=== PATIENT | male | born 1945 | race Caucasian/White ===

== ENCOUNTER 2016-09-18 22:28 | Inpatient (IN) | payer MEDICARE ==
[~2016-09-18] VITALS: Ht 167.6 cm; Wt 109.1 kg
[~2016-09-18 22:28] MED LIST: ACCUPRIL40 MG PO; CHILDREN'S ASPI81 MG PO; CORDARONE200 MG PO; DEMEROL 2525 MG/1 ML IV; DULCOLAX10 MG/SUPP RC; GLUCOPHAGE1000 MG PO; HUMULIN N100 U/ML SQ; HUMULIN R100 U/ML SC; HYDROCHLOROTHIA25 MG PO; HYDROCODONE-APA1 TAB PO; IMDUR60 MG PO; IPRAT-ALBUT 0.5-3 ML UPD; LAC-HYDRIN 5226 ML TOPICAL; LEVAQUIN500 MG PO; METFORMIN PO; METOPROLOL TAR100 MG PO; MIRALAX17 GM PO; NORCO 10/325 TA1 TA1 PO; OXYCONTIN30 MG PO; PRADAXA150 MG PO; PRAVACHOL80 MG PO; PRILOSEC20 MG PO; PROTONIX 40 MG40 MG IV; PROTONIX40 MG PO; SENOKOT-S TABLE1 TAB PO; TOPROL XL25 MG PO; ULTRAM50 MG PO; ZOFRAN4 MG PO; ZOLOFT50 MG PO
[2016-09-18 23:41] LABS: COLOR YELLOW (YELLOW)
[2016-09-18 23:42] LABS: APPEARANCE HAZY (CLEAR); BACTERIA FEW /hpf (NONE SEEN); BILIRUBIN NEGATIVE (NEGATIVE); EPITHELIAL CELLS 0-5 /hpf (0-5); GLUCOSE NEGATIVE (NEGATIVE); KETONE NEGATIVE (NEGATIVE); LEUKOCYTE ESTERASE 1+ (NEGATIVE); NITRITE NEGATIVE (NEGATIVE); PROTEIN NEGATIVE (NEGATIVE); RED CELLS - URINE NONE SEEN /hpf (0-5); UROBILINOGEN NORMAL (NORMAL); YEAST <1+ /hpf (NONE SEEN)
[2016-09-19 00:20] LABS: BASOPHILS 1.1 % (0.0-2.0); EOSINOPHILS 5.6 % (0-7); HEMATOCRIT 35.5 % (42.0-54.0); HEMOGLOBIN 11.2 g/dL (13.5-17.5); IMMATURE GRANULOCYTES 0.4 % (0-5); LYMPHOCYTES 21.8 % (15-50); MCH 27.4 pg (26.0-34.0); MCHC 31.5 g/dL (31.0-37.0); MCV 86.8 fL (80.0-100.0); MEAN PLATELET VOLUME 11.1 fL (7.4-10.4); MONOCYTES 9.6 % (2-11); NEUTROPHILS 61.5 % (40-80); PLATELET COUNT 150 10x3/uL (130-400); RBC 4.09 10x6/uL (4.20-6.10); RDW 13.3 % (11.5-14.5); WBC 5.7 10x3/uL (4.8-10.8)
[2016-09-19 00:35] LABS: ALBUMIN 2.8 g/dL (3.4-5.0); ANION GAP 9.6 mmol/L (8-16); BILIRUBIN - TOTAL 0.2 mg/dL (0.2-1.3); CALCIUM 9.1 mg/dL (8.5-10.1); CARBON DIOXIDE 31.3 mmol/L (21.0-32.0); CREATININE - SERUM 1.4 mg/dL (0.6-1.3); POTASSIUM - SERUM 4.9 mmol/L (3.5-5.1); PROTEIN - SERUM 7.5 g/dL (6.4-8.2)
[2016-09-19] MEDS ORDERED: KLOR-CON 1010 MEQ PO (02:49)
[2016-09-19] MEDS ORDERED: VITAMIN D250000 UNIT PO (02:50)
[2016-09-19] MEDS ORDERED: FLOMAX0.4 MG PO (02:51)
[2016-09-19] MEDS ORDERED: ISOSORBIDE MONO60 M1 PO (02:51)
[2016-09-19] MEDS ORDERED: CARTIA XT300 MG PO (02:51)
[2016-09-19] MEDS ORDERED: NEURONTIN 400400 MG PO (02:52)
[2016-09-19] MEDS ORDERED: SYNTHROID25 MCG PO (02:52)
[2016-09-19 02:53] VITALS: BP 121/63; BMI 36.0
[2016-09-19] MEDS ORDERED: MYSOLINE 50 MG50 MG PO (02:53)
[2016-09-19] MEDS ORDERED: PRAVACHOL80 MG PO (02:53)
[2016-09-19] MEDS ORDERED: LANOXIN125 MCG PO (02:54)
[2016-09-19] MEDS ORDERED: FUROSEMIDE40 MG PO (02:56)
[2016-09-19] MEDS ORDERED: TOPROL XL50 MG PO (02:56)
[2016-09-19] MEDS ORDERED: CYMBALTA20 MG PO (02:57)
[2016-09-19] MEDS ORDERED: REMERON15 MG PO (02:58)
[2016-09-19] MEDS ORDERED: OMEPRAZOLE20 M1 PO (02:59)
[2016-09-19] MEDS ORDERED: ACIDOPHILUS LAC1 CAP PO (03:00)
[2016-09-19] MEDS ORDERED: SENNA PLUS TA1 UDTAB PO (03:01)
[2016-09-19] MEDS ORDERED: CRANBERRY 400 M1 TA1 PO (03:01)
[2016-09-19] MEDS ORDERED: ALOPHEN PILLS5 MG PO (03:03)
[2016-09-19] MEDS ORDERED: PHENERGAN25 M1 PO (03:04)
[2016-09-19] MEDS ORDERED: MULTIPLE VITAMI1 TA1 PO (03:04)
[2016-09-19] MEDS ORDERED: HYDROCODONE-APA1 TAB PO ×2 (03:05→03:09)
[2016-09-19] MEDS ORDERED: ACETAMINOPHEN500 M1 PO (03:05)
[2016-09-19] MEDS ORDERED: LIORESAL 10 MG10 MG PO (03:06)
[2016-09-19] MEDS ORDERED: GLUCOPHAGE500 MG PO (03:07)
[2016-09-19] MEDS ORDERED: DURAGESIC1 PATCH .1 TRANSDERM (03:07)
[2016-09-19] MEDS ORDERED: MOBIC7.5 MG PO (03:08)
[2016-09-19] MEDS ORDERED: NOVOLOG100 U/M1 SC (03:13)
[2016-09-19] MEDS ORDERED: IPRAT-ALBUT 0.5-3 ML UPD (03:16)
--- NOTE | 2016-09-19 03:46 | NUR ---
RECIEVED PATIENT AT 0230 FROM ER BY DANIELLE, ALERT AND ORIENTED X 4, VSS, IV LEFT HAND WITH NS AT 100 AND LEVIQUINE, CALL LIGHT AND WATER IN REACH, BED RAILS UP X 2, BED LOW AND LOCKED, ASSESSMENT AND HISTORY DONE, MEDICATIONS ENTERED INTO COMPUTER, CHIEF COMPLAINT UTI, WILL CONTINUE TO MONITOR.
[2016-09-19 04:00] VITALS: BP 121/63
[2016-09-19 04:07] LABS: UDS - AMPHET NEGATIVE QUAL (NEGATIVE); UDS - BARB POSITIVE QUAL (NEGATIVE); UDS - BENZO NEGATIVE QUAL (NEGATIVE); UDS - COCAINE NEGATIVE QUAL (NEGATIVE); UDS - METH NEGATIVE QUAL (NEGATIVE); UDS - OPIATE POSITIVE QUAL (NEGATIVE); UDS - PCP NEGATIVE QUAL (NEGATIVE); UDS - THC NEGATIVE QUAL (NEGATIVE)
[2016-09-19 09:09] VITALS: BP 134/68
--- NOTE | 2016-09-19 09:28 | NUR ---
SCD'S ON BILATERAL LE
[2016-09-19 10:44] VITALS: Ht 167.6 cm; Wt 109.1 kg
--- NOTE | 2016-09-19 11:37 | NUR ---
PT LAYING IN BED AND APPERS TO BE SLEEPING NO DISTRESS OBSERVED PT RESPONDS TO VERBAL STIMULI AND ANSWER QUESTIONS APPROPREATLY BED LOW AND LOCKED SRX2 WILL MONITOR
[2016-09-19 12:38] VITALS: BP 148/80
--- NOTE | 2016-09-19 13:00 | NUR ---
PT LAYING IN BED NO DISTRESS OBSERVED CALL LIGHT IN REACH SRX2 BED LOW AND LOCKED RESPERATIONS EVEN AND UNLABORED WILL MONITOR
--- NOTE | 2016-09-19 15:36 | NUR ---
PT C/O PAIN AT THIS TIME DR MOTTA TO RECIVE ORDER AND NO RETURN CALL OF YET
[2016-09-19 15:45] VITALS: BP 131/74
--- NOTE | 2016-09-19 16:01 | NUR ---
Patient Name: GOMEZ SANTO Admission Status: ER Accout number: [id number] Admission Date: 09-19-2016 : 1945 Admission Diagnosis:URINARY TRACT INFECTION, SITE NOT SPECIFIED Attending: RODY Current LOS: 1 Anticipated DC Date: Planned Disposition: Nursing Facility [facility] Primary Insurance: MEDICARE A & B PLANNED EXTERNAL PROVIDER: [facility], [place] MEDICA[place] BED Discharge Planning Comments: * Is the patient Alert and Oriented? Yes 0 * How many steps to enter\exit or inside your home? NONE 0 * PCP DR. MARSH 0 * Pharmacy [facility] 0 * Preadmission Environment [facility] 0 * Facility Name [facility] 0 * ADLs Partial Dependent 0 * Partial ADLs (Assistance needed) Bathing Medication Management Toileting Transfers 0 * Equipment Other 0 * Other Equipment ALL MEDICAL EQUIPMENT PROVIDED BY RETIREMENT [facility] 0 * List name and contact numbers for known caregivers / representatives who currently or will assist patient after discharge: JOSE GAITAN, DAUGHTER, 0 * Community resources currently utilized Other 0 * Please name any agencies selected above. NONE 0 * Additional services required to return to the preadmission environment? No 0 * Can the patient safely return to the preadmission environment? Yes 0 * Has this patient been hospitalized within the prior 30 days at any hospital? No 0 CM MET WITH PT IN ROOM TO DISCUSS DISCHARGE PLANNING AND NEEDS. PT REPORTS HE LIVES AT [facility] [place]. PT REPORTS THEY ARE TAKING GOOD CARE OF HIM AND HE FEELS SAFE THERE. PT HAS LIVED AT THE [facility] FOR ABOUT ONE YEAR AFTER HE HAD A STROKE, COMPLETED REHAB AND COULD NOT GO HOME. PT REPORTS PLAN TO RETURN TO [facility] AT DISCHARGE. FOR DISCHARGE, NURSE REPORT TO BE CALLED TO [facility] AT [phone], FAX DISCHARGE INFORMATION TO [place] AT [phone]. PT MAY REQUIRE AMBULANCE TRANSPORT HE REPORTS INABILITY TO SIT ERECT FOR MORE THAN A FEW MINUTES AT A TIME. Snowboarder: Minesh Escobar
--- NOTE | 2016-09-19 19:34 | NUR ---
FELICITAS FIELDS CALLED TO SPEAK WITH PT AND PT DAUGHTER BETHANIE ARRIVED AT PT ROOM AT THIS TIME
[2016-09-19 20:30] VITALS: BP 107/85
--- NOTE | 2016-09-19 23:48 | NUR ---
PT LAYING IN BED EYES CLOSED PT APPERS TO BE SLEEPING NO DISTRESS OBSERVED CALL LIGHT IN REACH SRX2 BED LOW AND LOCKED RESPERATIONS EVEN AND UNLABORED WILL MONITOR
[2016-09-20] VITALS: BP 119/52
--- NOTE | 2016-09-20 01:46 | NUR ---
PT LYING IN BED, EYES CLOSED, RESPIRATIONS EVEN AND UNLABORED. PT EASILY ROUSABLE TO VERBAL STIMULI. DENIES ANY NEEDS. CONTINUE TO MONITOR CLOSELY. BED LOW, CALL LIGHT IN REACH, SIDE RAILS X 2, HOB 10 DEGREES.
[2016-09-20 06:29] VITALS: BP 131/66
[2016-09-20 07:05] LABS: BASOPHILS 0.6 % (0.0-2.0); EOSINOPHILS 5.2 % (0-7); HEMOGLOBIN 10.4 g/dL (13.5-17.5); IMMATURE GRANULOCYTES 0.4 % (0-5); LYMPHOCYTES 19.7 % (15-50); MCH 27.4 pg (26.0-34.0); MCHC 31.5 g/dL (31.0-37.0); MCV 86.8 fL (80.0-100.0); MEAN PLATELET VOLUME 10.7 fL (7.4-10.4); MONOCYTES 11.5 % (2-11); NEUTROPHILS 62.6 % (40-80); PLATELET COUNT 160 10x3/uL (130-400); RDW 13.3 % (11.5-14.5); WBC 5.4 10x3/uL (4.8-10.8)
[2016-09-20 07:19] LABS: CALC OSMOLALITY 283 mosm/kg (275-300); CALCIUM 9.5 mg/dL (8.5-10.1); CARBON DIOXIDE 31.2 mmol/L (21.0-32.0); CHLORIDE - SERUM 104 mmol/L (98-107); CREATININE - SERUM 0.9 mg/dL (0.6-1.3); POTASSIUM - SERUM 4.3 mmol/L (3.5-5.1); SODIUM 140 mmol/L (136-145); UREA NITROGEN 11 mg/dL (7-18); eGFR NON AFRICAN AMERICAN 88 mL/min (90-120)
[2016-09-20 07:23] LABS: GLUCOSE 208 mg/dL (74-106)
--- NOTE | 2016-09-20 07:30 | NUR ---
LAYING IN BED WATCHING TV. DENIES NEEDS. CALL LIGHT IN REACH. INCONT OF URINE
[2016-09-20 08:32] VITALS: BP 144/76
--- NOTE | 2016-09-20 12:01 | NUR ---
SITTING UP IN CHAIR IN ROOM EATING LUNCH. INSISTED ON GETTING UP EARLIER. REFUSED TO USE URINAL OR EVEN TRY. STATED HE PREFERRED TO BE INCONT IN BRIEF LIKE HE DOES IT AT [facility]. WHEN NURSE ENCOURAGED PT TO TRY TO USE URINAL HE SAID HE COULD NOT PEE STRAIGHT AND WOULD MISS THE OPENING OF URINAL. WHEN NURSE TOOK URINAL AWAY AT PT INSISTANCE HE IMMEDIATELY PEED IN FLOOR.
[2016-09-20 12:43] VITALS: BP 127/102
--- NOTE | 2016-09-20 14:05 | NUR ---
IN BED. HAD BATH DUE TO INCONT OF URINE AND BOWEL. MAX ASST WITH TRANSFERS. HAS BILAT FOOT DROP.
[2016-09-20 16:18] VITALS: BP 97/56
--- NOTE | 2016-09-20 17:16 | NUR ---
DTR IS VISITING PT AND BROUGHT HIM NON DIABETIC FOODS. HE DENIES NEEDS.
[2016-09-20 20:15] VITALS: BP 84/50
--- NOTE | 2016-09-20 21:29 | NUR ---
PT AWAKE, ALERT, ORIENTED, DENIES ANY ACUTE NEEDS AT THIS TIME. CONTINUE TO MONITOR CLOSELY. BED LOW, CALL LIGHT IN REACH, SIDE RAILS X 2, HOB 10 DEGREES.
--- NOTE | 2016-09-20 23:49 | NUR ---
PT LYING IN BED, EYES CLOSED, RESPIRATIONS EVEN AND UNLABORED. PT IS EASILY ROUSABLE TO VERBAL STIMULI. DENIES ANY NEEDS. CONTINUE TO MONITOR CLOSELY. BED LOW, CALL LIGHT IN REACH, HOB 20 DEGREES, SIDE RAILS X 2.
[2016-09-21 00:34] VITALS: BP 130/60
[2016-09-21 04:26] VITALS: BP 108/53
--- NOTE | 2016-09-21 07:33 | NUR ---
AM ROUNDING DONE. PATIENT IS APPEARING TO BE SLEEPING, RESP ARE EVEN AND NON LABORED. DNR CODE STATUS, ON 2L PER NC. LEFT WRIST WITH NS INFUSING AT 100/HR. WILL CONTINUE TO MONITOR.
[2016-09-21 08:33] VITALS: BP 112/68
[2016-09-21 12:26] VITALS: BP 132/68
[2016-09-21 15:46] VITALS: BP 142/77
--- NOTE | 2016-09-21 17:37 | NUR ---
COVERED WITH 2 UNITS OF HUMALOG INSULINE TO LEFT UPPER ARM. PATIENT ATE A FEW BITES OF HAMBURGER, ENCOUARGED TO EAT MORE. WILL MONITOR.
[2016-09-21 20:00] VITALS: BP 106/46
[2016-09-22 03:49] VITALS: BP 112/52
--- NOTE | 2016-09-22 03:53 | NUR ---
PATIENT SUPINE IN BED WATCHING T.V. I.V INFUSING, 02 AT 2L, BED LOW, CALL LIGHT IN REACH. CONTINUE TO MONITOR, CONTINUE PLAN OF CARE
--- NOTE | 2016-09-22 07:40 | NUR ---
PT ASSESSMENT COMPLETED PT LAYING IN BED NO DISTRESS OBSERVED RESPERATIONS EVEN AND UNLBAORED CALL LIGHT IN REACH SRX2 BED LOW AND LOCKED WILL MONITOR
[2016-09-22 08:25] VITALS: BP 132/54
--- NOTE | 2016-09-22 10:09 | NUR ---
PT CLEANED UP BY JEROME BAEZ AT THIS TIME PT TOLERATED WELL
[2016-09-22 11:37] VITALS: BP 130/63
--- NOTE | 2016-09-22 13:20 | NUR ---
WOUND CARE: NOTED THAT BILATERAL LOWER EXTREMITIES ARE RED, EDEMATOUS AND SCALY. PT STATES THEY HAVE LOOKED LIKE THIS FOR "A LONG TIME". HE STATES HIS "BOTTOM IS SORE". UPON ASSESSMENT NOTED A DEEP TISSUE INJURY TO LEFT BUTTOCK (COCCYX) 0.5CM X 2CM X PURPLE/NONBLANCHING INNER LEFT BUTTOCK (COCCYX) STAGE 2 PRESSURE INJURY (RUPTURED BLISTER) DEEP PURPLE IN COLOR. COVERED AREAS WITH MEPILEX SACRAL DRESSING AND INSTRUCTED PT TO TURN/REPOSITION HIMSELF FREQUENTLY. PLACED ON A TURN Q2H SCHEDULE.
[2016-09-22 15:59] VITALS: BP 95/45
--- NOTE | 2016-09-22 17:21 | NUR ---
BS IS 267. PT REFUSED TO EAT SUPPER SO BS NOT COVERED.
--- NOTE | 2016-09-22 19:40 | NUR ---
LAYING IN BED, WITH HOB UP EATING DINNER THAT FAMILY BROUGHT. USES URINAL W/O DIFF. NO IV NOTED. SACRAL DRSG CDI. BED ALARM ON AND WORKING. SR UP X2, CONTINUE TO MONITOR.
[2016-09-22 20:00] VITALS: BP 103/55
[2016-09-23] VITALS: BP 102/50
[2016-09-23 04:00] VITALS: BP 134/56
--- NOTE | 2016-09-23 07:34 | NUR ---
AM ROUNDING DONE WITH PATIENT SEEN TO BE LAYING FLAT. DENIES NEEDS AT PRESENT TIME. ON 2.5 L NC. BED ALARM IS SET. WILL COTNINUE TO MONITOR.
[2016-09-23 08:08] VITALS: BP 128/65
--- NOTE | 2016-09-23 10:24 | NUR ---
0840-SMALL MEPILEX REMOVED FROM BUTTOCK. ON LEFT BUTT CHEECK, PRESSURE ULCER OR SHEARING SEEN (STAGE 1) MEASURING 2 CM X 1 CM AND ANOTHER BRUSIED INJURY AREA (DEEP TISSUE ?) SEEN WITH MEASUREMENT OF 3 CM X 1 CM. NO DRAINAGE FROM EITHER. NEW MEPILEX PLACED AND DATED.
[2016-09-23] MEDS ORDERED: DIFLUCAN100 MG PO (10:25)
--- NOTE | 2016-09-23 11:37 | NUR ---
Patient Name: GOMEZ SANTO Encounter No: [id number] : 1945 Primary Insurance: MEDICARE A & B Anticipated DC Date: 09-23-2016 Planned Disposition: Nursing Facility [facility] External Planned Provider: [facility], MEDICARE REHAB BED DCP follow-up note: CM RECEIVED DISCHARGE ORDER, MET WITH PT IN ROOM WHO REPORTS AGREEMENT WITH DISCHARGE BACK TO [facility]. IMPORTANT MESSAGE FROM MEDICARE PROVIDED AND EXPLAINED. PT REPORTS ABILITY TO SIT IN WHEELCHAIR FOR VAN TRANSPORT. CM FAXED DISCHARGE INFORMATION TO [facility] AT [phone]. NURSE REPORT TO BE CALLED TO [facility] AT [phone], [facility] TO CALL FLOOR WITH VAN SPRAY PAINTING MACHINE OPERATOR TIME. Human Capital Consultant: Minesh Escobar
[2016-09-23 11:41] VITALS: BP 116/78
--- NOTE | 2016-09-23 13:24 | NUR ---
CALLED REPORT TO DYLAN MORILLO AT [facility]. WILL CALL [facility] TRANSPORT [phone].
--- NOTE | 2016-09-23 14:21 | NUR ---
CALLED DALLIN IN ER TO SEE IF PATIENT HAS HIS "CLARKE SWEATPANTS POSSIBLY WITH A BLEACH STAIN ON THEM AND EITHER SIZE 8.5 BLACK OR BROWN PAIR OF DIABETIC SHOES". AWAITING CALL BACK.
--- NOTE | 2016-09-23 14:32 | NUR ---
ER TO CALL BACK AND TELL ME THAT THEY DO NOT HAVE THE CLOTHES.
--- NOTE | 2016-09-23 14:41 | NUR ---
1435-VERBAL AND WRITTEN DISCHARGE INSTRUCTIONS GIVEN TO PATIENT. AMBULANCE HERE, WITH MAX ASSSIT, TRANSFERRED TO [facility] AND DISCHARGED.
== END 2016-09-23 14:44 | DRG 728 ==
LOC: D.ER 22:28 → D.M2 09-19 01:55
PROVIDERS: Emergency Medicine; Nurse Practitioner Family; ADMIT Family Medicine
DX: B37.49 Other urogenital candidiasis (principal); I69.954 Hemiplegia and hemiparesis following unspecified cerebrovascular disease affecting left non-dominant side; R41.0 Disorientation, unspecified; E86.0 Dehydration; D64.9 Anemia, unspecified; E11.9 Type 2 diabetes mellitus without complications; E78.5 Hyperlipidemia, unspecified; I48.91 Unspecified atrial fibrillation; I25.10 Atherosclerotic heart disease of native coronary artery without angina pectoris; I10 Essential (primary) hypertension; N40.0 Benign prostatic hyperplasia without lower urinary tract symptoms; J44.9 Chronic obstructive pulmonary disease, unspecified; E03.9 Hypothyroidism, unspecified; G47.33 Obstructive sleep apnea (adult) (pediatric); G89.4 Chronic pain syndrome; G47.00 Insomnia, unspecified; R25.1 Tremor, unspecified; K59.09 Other constipation; E66.01 Morbid (severe) obesity due to excess calories; Z68.36 Body mass index [BMI] 36.0-36.9, adult; Z95.5 Presence of coronary angioplasty implant and graft

== ENCOUNTER 2017-01-05 17:48 | Inpatient (IN) | payer MEDICARE ==
[~2017-01-05] VITALS: Ht 167.6 cm; Wt 81.6 kg
[~2017-01-05 17:48] MED LIST changes: +ACETAMINOPHEN500 M1 PO; +ACIDOPHILUS LAC1 CAP PO; +ALOPHEN PILLS5 MG PO; +CARTIA XT300 MG PO; +CRANBERRY 400 M1 TA1 PO; +CYMBALTA20 MG PO; +DIFLUCAN100 MG PO; +DURAGESIC1 PATCH .1 TRANSDERM; +FLOMAX0.4 MG PO; +FUROSEMIDE40 MG PO; +GLUCOPHAGE500 MG PO; +ISOSORBIDE MONO60 M1 PO; +KLOR-CON 1010 MEQ PO; +LANOXIN125 MCG PO; +LIORESAL 10 MG10 MG PO; +MOBIC7.5 MG PO; +MULTIPLE VITAMI1 TA1 PO; +MYSOLINE 50 MG50 MG PO; +NEURONTIN 400400 MG PO; +NOVOLOG100 U/M1 SC; +OMEPRAZOLE20 M1 PO; +PHENERGAN25 M1 PO; +REMERON15 MG PO; +SENNA PLUS TA1 UDTAB PO; +SYNTHROID25 MCG PO; +TOPROL XL50 MG PO; +VITAMIN D250000 UNIT PO
[2017-01-05 18:26] LABS: APPEARANCE HAZY (CLEAR); BILIRUBIN NEGATIVE (NEGATIVE); COLOR YELLOW (YELLOW); GLUCOSE 100 mg/dL (NEGATIVE); KETONE NEGATIVE (NEGATIVE); LEUKOCYTE ESTERASE 2+ (NEGATIVE); NITRITE NEGATIVE (NEGATIVE); PROTEIN 1+ mg/dL (NEGATIVE); UROBILINOGEN NORMAL (NORMAL)
[2017-01-05 18:27] LABS: BACTERIA MODERATE /hpf (NONE SEEN); RED CELLS - URINE 0-5 /hpf (0-5); YEAST >1+ /hpf (NONE SEEN)
[2017-01-05 18:38] LABS: BASOPHILS 0.3 % (0-2); EOSINOPHILS 1.6 % (0-7); HEMATOCRIT 43.1 % (42.0-54.0); HEMOGLOBIN 14.1 g/dL (13.5-17.5); IMMATURE GRANULOCYTES 0.4 % (0-5); LYMPHOCYTES 11.4 % (15-50); MCH 27.9 pg (26.0-34.0); MCHC 32.7 g/dL (31.0-37.0); MCV 85.2 fL (80.0-100.0); MEAN PLATELET VOLUME 10.2 fL (7.4-10.4); NEUTROPHILS 76.3 % (40-80); RBC 5.06 10x6/uL (4.20-6.10); RDW 13.1 % (11.5-14.5); WBC 11.6 10x3/uL (4.8-10.8)
[2017-01-05 18:39] LABS: UDS - AMPHET NEGATIVE QUAL (NEGATIVE); UDS - BARB POSITIVE QUAL (NEGATIVE); UDS - BENZO NEGATIVE QUAL (NEGATIVE); UDS - COCAINE NEGATIVE QUAL (NEGATIVE); UDS - METH NEGATIVE QUAL (NEGATIVE); UDS - OPIATE POSITIVE QUAL (NEGATIVE); UDS - PCP NEGATIVE QUAL (NEGATIVE); UDS - THC NEGATIVE QUAL (NEGATIVE)
[2017-01-05 19:03] LABS: INR 1.21 (0.85-1.17); PROTIME 15.2 SECONDS (11.6-15.0)
[2017-01-05 19:04] LABS: APTT 45.6 SECONDS (22.8-39.4)
[2017-01-05 19:05] LABS: ALBUMIN 3.8 g/dL (3.4-5.0); ANION GAP 9.9 mmol/L (8-16); BILIRUBIN - TOTAL 0.58 mg/dL (0.2-1.3); CARBON DIOXIDE 36.9 mmol/L (21.0-32.0); PROTEIN - SERUM 9.5 g/dL (6.4-8.2); TROPONIN-I 0.029 ng/mL (0.000-0.060)
[2017-01-05 19:10] LABS: PLATELET COUNT 226 10x3/uL (130-400)
[2017-01-05 19:18] LABS: CALCIUM 10.2 mg/dL (8.5-10.1); CREATININE - SERUM 1.4 mg/dL (0.6-1.3)
[2017-01-05 19:29] LABS: POTASSIUM - SERUM 2.8 mmol/L (3.5-5.1)
--- NOTE | 2017-01-05 21:08 | NUR ---
RECIEVED PT TO FLOOR VIA STRETCHER FROM ED. PT IS ORIENTED ONLY TO SELF. IV IS PATENT AND ANTIBIOTIC RUNNING FROM ED. MINA IS DRAINING URINE BY GRAVITY. PT DENIES ANY PAIN. PT IS ORIENTED TO ROOM AND USE OF CALL LIGHT. NO NEEDS ARE VERBALIZED AT THIS TIME. WILL CONTINUE TO MONITOR. STEPAN MAT PLACED ON FOR SAFETY. SIDE RAILS ARE UP X 2. BED IS IN LOWEST POSITION. CALL LIGHT PLACED IN HAND.
--- NOTE | 2017-01-05 22:58 | NUR ---
ADMIT ASSESSMENT COMPLETED AT THIS TIME. FLUIDS HOOKED UP PER ORDER. PT RECIEVED 10 UNITS INSULIN AT THIS TIME FOR ITFT=678. NO NEEDS ARE VOICED. WILL MONITOR. SIDE RAILS X 2. BED LOW. STEPAN ON. CALL LIGHT IN REACH.
[2017-01-06] VITALS (7 sets, daily range): BP systolic 120–170; BP diastolic 64–95; Ht 167.6 cm; Wt 81.6 kg
[2017-01-06] MEDS ORDERED: ASPIRIN EC81 M1 PO (03:44)
[2017-01-06] MEDS ORDERED: ELIQUIS2.5 MG PO (03:46)
[2017-01-06 06:45] LABS: BASOPHILS 0.4 % (0-2); EOSINOPHILS 0.7 % (0-7); HEMATOCRIT 41.3 % (42.0-54.0); HEMOGLOBIN 13.5 g/dL (13.5-17.5); IMMATURE GRANULOCYTES 0.4 % (0-5); LYMPHOCYTES 18.6 % (15-50); MCH 27.6 pg (26.0-34.0); MCHC 32.7 g/dL (31.0-37.0); MCV 84.3 fL (80.0-100.0); MEAN PLATELET VOLUME 9.9 fL (7.4-10.4); MONOCYTES 10.3 % (2-11); NEUTROPHILS 69.6 % (40-80); PLATELET COUNT 210 10x3/uL (130-400); RDW 13.2 % (11.5-14.5)
[2017-01-06 07:01] LABS: ANION GAP 11.6 mmol/L (8-16); CALCIUM 9.9 mg/dL (8.5-10.1); CARBON DIOXIDE 34.7 mmol/L (21.0-32.0); CREATININE - SERUM 1.4 mg/dL (0.6-1.3)
[2017-01-06 07:03] LABS: POTASSIUM - SERUM 3.3 mmol/L (3.5-5.1)
[2017-01-06 07:04] LABS: WBC 7.7 10x3/uL (4.8-10.8)
--- NOTE | 2017-01-06 13:46 | NUR ---
Patient Name: GOMEZ SANTO Admission Status: ER Accout number: [id number] Admission Date: 01-05-2017 : 1945 Admission Diagnosis: Attending: RODY Current LOS: 1 Anticipated DC Date: 01-08-2017 Planned Disposition: Nursing Facility [facility] Primary Insurance: MEDICARE A & B Discharge Planning Comments: CM CALLED PATIENTS DAUGHTER (JOSE) REGARDING D/C NEEDS AND PLANS. PATIENT IS A RESIDENT AT [facility] FOR ABOUT 2 YEARS NOW PER DAUGHTER. PATIENT IS [place] AT THE FACILITY. PATIENTS PCP IS DR. MARSH AND PHARMACY IS IN HOUSE. PATIENT WILL RETURN THERE AT DISCHARGE. CM WILL CONTINUE TO FOLLOW PATIENT WITH D/C NEEDS AND PLANS. PCP DR[facility] (PHARMACY IN HOUSE) JOSE GAITAN (DAUGHTER) [phone] Form Carpenter: Tawny Zhou Is the patient Alert and Oriented? No 0 * How many steps to enter\exit or inside your home? 0 0 * PCP DR. MARSH 0 * Pharmacy IN HOUSE AT [facility] 0 * Preadmission Environment Application Software Engineer Residential 0 * Facility Name [facility] 0 * ADLs Total Dependent 0 * Other Equipment [place] ALL EQUIPMENT NEEDED AT FACILITY 0 * List name and contact numbers for known caregivers / representatives who currently or will assist patient after discharge: JOSE GAITAN [phone] 0 * Community resources currently utilized None 0 * Additional services required to return to the preadmission environment? Yes 0 * Can the patient safely return to the preadmission environment? Yes 0 * Has this patient been hospitalized within the prior 30 days at any hospital? No 0 Grand Total: 0
--- NOTE | 2017-01-06 15:34 | NUR ---
CHANGED MINA CATHETER. PATIENT HAD CHRONIC MINA CATHETER ON ADMISSION. PUT IN A 16FR MINA, STERILE TECHNIQUE MAINTAINED. PATIENT TOLERATED WELL.
--- NOTE | 2017-01-06 19:20 | NUR ---
RECIEVED SHIFT REPORT. PT IS LYING IN BED ALERT TO SELF AT THIS TIME. IV IS PATENT AND FLUIDS ARE RUNNING PER ORDER. PT DENIES ANY PAIN AT THIS TIME. PT REQUIRES ASSISTANCE TURNING IN BED FOR COMFORT AND SKIN CARE. MINA IS DRAINING URINE BY GRAVITY. NO NEEDS ARE VERBALIZED AT THIS TIME. WILL CONTINUE TO MONITOR. SIDE RAILS ARE UP X 2. BED IS IN LOWEST POSITION. STEPAN MAT IS ON FOR SAFETY. CALL LIGHT IS WITHIN REACH.
--- NOTE | 2017-01-06 21:53 | NUR ---
SHIFT ASSESSMENT COMPLETED. NIGHT MEDS GIVEN WITH NO PROBLEMS. PT RECIEVED 8 UNITS INSULIN PER SLIDING SCALE FOR KJNP=785. NO NEEDS ARE VOICED. WILL MONITOR. SIDE RAILS X 2. BED LOW. STEPAN MAT ON. CALL LIGHT IN REACH.
--- NOTE | 2017-01-06 23:10 | NUR ---
NOTIFIED THAT PATIENT HAD ACCIDENTALLY PULLED OUT HIS IV. NO SIGNS OF INFILTRATION NOTED. RESITED THE PATIENT WITH A 20G IN THE L FA ON THE SECOND ATTEMPT.
[2017-01-07] VITALS: BP 147/81
[2017-01-07 05:21] LABS: BASOPHILS 0.3 % (0-2); EOSINOPHILS 0.5 % (0-7); HEMATOCRIT 35.8 % (42.0-54.0); HEMOGLOBIN 11.4 g/dL (13.5-17.5); IMMATURE GRANULOCYTES 0.3 % (0-5); LYMPHOCYTES 19.5 % (15-50); MCH 27.1 pg (26.0-34.0); MCHC 31.8 g/dL (31.0-37.0); MEAN PLATELET VOLUME 10.4 fL (7.4-10.4); MONOCYTES 11.2 % (2-11); NEUTROPHILS 68.2 % (40-80); PLATELET COUNT 209 10x3/uL (130-400); RBC 4.21 10x6/uL (4.20-6.10); RDW 13.4 % (11.5-14.5); WBC 7.9 10x3/uL (4.8-10.8)
[2017-01-07 06:22] LABS: HEMOGLOBIN A1C 9.3 % (4.8-6.0)
[2017-01-07 06:49] LABS: BILIRUBIN - TOTAL 0.4 mg/dL (0.2-1.3); CALCIUM 9.3 mg/dL (8.5-10.1); CARBON DIOXIDE 32.5 mmol/L (21.0-32.0); CHOL - HDL RATIO 4.3 ratio (2.3-4.9); CREATININE - SERUM 1.5 mg/dL (0.6-1.3); LDL-HDL RATIO 2.3 ratio (1.5-3.5); PROTEIN - SERUM 7.6 g/dL (6.4-8.2); THYROID STIMULATING HORMONE 1.53 uIU/mL (0.36-3.74)
[2017-01-07 06:55] LABS: ALBUMIN 2.8 g/dL (3.4-5.0); ANION GAP 10.7 mmol/L (8-16); POTASSIUM - SERUM 4.2 mmol/L (3.5-5.1)
[2017-01-07 08:51] VITALS: BP 144/85
[2017-01-07 13:12] VITALS: BP 119/58
[2017-01-07 14:50] VITALS: BP 124/66
--- NOTE | 2017-01-07 19:00 | NUR ---
BEDSIDE REPORT RECEIVED AND CARE OF PT ASSUMED. PT LYING IN SEMI MEDRANO'S POSITION WATCHING TV. IV IN LEFT FA PATENT WITH NS W/ 40 KCL INFUSING AT 125 ML / HR. MINA CATHETER DRAINING TO GRAVITY WITY YELLOW URINE IN COLLECTION BAG. WILL MONITOR FOR NEEDS.
[2017-01-07 20:00] VITALS: BP 144/62
--- NOTE | 2017-01-07 21:31 | NUR ---
HS MEDICATIONS GIVEN. FSBS 278 THIS CHECK REQUIRING COVERAGE WITH 6 UNITS OF INSULIN PER SLIDING SCALE. WILL CONTINUE TO MONITOR FOR NEEDS. BED ALARM IN USE.
[2017-01-08] VITALS: BP 108/63
--- NOTE | 2017-01-08 00:30 | NUR ---
PT BATHED AND ALL LINENS AND GOWN CHANGED. SIDE RAILS UP X2 FOR SAFETY.
[2017-01-08 04:00] VITALS: BP 110/70
--- NOTE | 2017-01-08 07:59 | NUR ---
AWAKE AND ALERT. ORIENTED TO SELF AND SITUATION. REORIENTED TO TIME PER STAFF. LUNGS ARE CLEAR BILATERALLY, NO COUGH NOTED. SKIN IS INTACT WITHOUT REDNESS. SOME EDEMA NOTED TO BILATERAL LOWER EXTREMETIES. MINA PATENT WITH CLEAR YELLOW URINE. IV TO LEFT FOREARAM IS PATENT WITHOUT REDNESS AT INSERTION SITE. DENIES NEEDS.
--- NOTE | 2017-01-08 10:00 | NUR ---
HAD LARGE SOFT BM. SKIN CARE PER STAFF. LINENS CHANGED.
[2017-01-08 10:13] VITALS: BP 152/78
[2017-01-08] MEDS ORDERED: DIFLUCAN100 MG PO (11:07)
[2017-01-08] MEDS ORDERED: CATAPRES0.2 MG PO (11:08)
[2017-01-08] MEDS ORDERED: NEURONTIN 400400 MG PO (11:09)
[2017-01-08] MEDS ORDERED: INVOKANA300 MG PO (11:10)
[2017-01-08] MEDS ORDERED: LANTUS INSULIN10 ML SC (11:12)
[2017-01-08] MEDS ORDERED: JANUVIA100 MG PO (11:12)
[2017-01-08 12:27] VITALS: BP 129/54
--- NOTE | 2017-01-08 13:57 | NUR ---
CM REASSESSMENT NOTE: PATIENT IS DISCHARGING BACK TO [facility] TODAY BY AMBULANCE TO A SENIOR ANDROID DEVELOPER BED
--- NOTE | 2017-01-08 14:30 | NUR ---
REPORT CALLED TO DIAMOND SANTO LPN AT [facility]. ALL QUESTIONS ANSWERED. IV TO LEFT FOREARM D/C WITH CATHETER INTACT.
--- NOTE | 2017-01-08 15:20 | NUR ---
DISCHARGED VIA AMBULANCE TO [facility]. DAUGHTER AWARE PER DR. MARSH OF RETURN TO PREVIOUS LIVING CIRCUMSTANCES.
== END 2017-01-08 13:20 | DRG 689 ==
LOC: D.ER 17:48 → D.MS 20:02
PROVIDERS: Emergency Medicine; ADMIT Family Medicine
DX: N39.0 Urinary tract infection, site not specified (principal); G93.41 Metabolic encephalopathy; E11.9 Type 2 diabetes mellitus without complications; I25.10 Atherosclerotic heart disease of native coronary artery without angina pectoris; R25.1 Tremor, unspecified; I69.319 Unspecified symptoms and signs involving cognitive functions following cerebral infarction; E03.9 Hypothyroidism, unspecified; J44.9 Chronic obstructive pulmonary disease, unspecified; M19.90 Unspecified osteoarthritis, unspecified site; I10 Essential (primary) hypertension; E78.5 Hyperlipidemia, unspecified; I48.91 Unspecified atrial fibrillation; Z79.02 Long term (current) use of antithrombotics/antiplatelets; N40.0 Benign prostatic hyperplasia without lower urinary tract symptoms; F32.9 Major depressive disorder, single episode, unspecified

== ENCOUNTER 2017-02-22 11:22 | Inpatient (IN) | payer MEDICARE ==
[~2017-02-22] VITALS: Ht 167.6 cm; Wt 112.9 kg
[~2017-02-22 11:22] MED LIST changes: +ASPIRIN EC81 M1 PO; +CATAPRES0.2 MG PO; +ELIQUIS2.5 MG PO; +INVOKANA300 MG PO; +JANUVIA100 MG PO; +LANTUS INSULIN10 ML SC
[2017-02-22 12:04] LABS: APPEARANCE CLEAR (CLEAR); BILIRUBIN NEGATIVE (NEGATIVE); COLOR YELLOW (YELLOW); GLUCOSE 1000 mg/dL (NEGATIVE); KETONE NEGATIVE (NEGATIVE); LEUKOCYTE ESTERASE 1+ (NEGATIVE); NITRITE NEGATIVE (NEGATIVE); PROTEIN TRACE mg/dL (NEGATIVE); SPECIFIC GRAVITY 1.005 (1.005-1.020); UROBILINOGEN NORMAL (NORMAL)
[2017-02-22 12:08] LABS: BACTERIA MODERATE /hpf (NONE SEEN); CALCIUM OXALATE CRYSTALS 0-5 /hpf (NONE SEEN); EPITHELIAL CELLS OCC /hpf (0-5); RED CELLS - URINE 0-5 /hpf (0-5); WHITE CELLS - URINE 0-5 /hpf (0-5); YEAST >1+ /hpf (NONE SEEN)
[2017-02-22 12:11] LABS: BASOPHILS 0.3 % (0-2); EOSINOPHILS 2.3 % (0-7); HEMATOCRIT 43.1 % (42.0-54.0); IMMATURE GRANULOCYTES 0.6 % (0-5); LYMPHOCYTES 16.6 % (15-50); MCH 27.7 pg (26.0-34.0); MCHC 32.5 g/dL (31.0-37.0); MCV 85.3 fL (80.0-100.0); MONOCYTES 9.2 % (2-11); PLATELET COUNT 179 10x3/uL (130-400); RBC 5.05 10x6/uL (4.20-6.10); RDW 13.5 % (11.5-14.5); WBC 9.5 10x3/uL (4.8-10.8)
[2017-02-22 12:23] LABS: ALBUMIN 3.5 g/dL (3.4-5.0); ANION GAP 9.2 mmol/L (8-16); BILIRUBIN - TOTAL 0.53 mg/dL (0.2-1.3); CALCIUM 9.6 mg/dL (8.5-10.1); CARBON DIOXIDE 35.9 mmol/L (21.0-32.0); CREATININE - SERUM 1.6 mg/dL (0.6-1.3); POTASSIUM - SERUM 4.1 mmol/L (3.5-5.1); PROTEIN - SERUM 8.7 g/dL (6.4-8.2)
[2017-02-22 12:30] LABS: MAGNESIUM - SERUM 2.1 mg/dL (1.8-2.4); TROPONIN-I 0.018 ng/mL (0.000-0.060)
--- NOTE | 2017-02-22 15:08 | NUR ---
RECEIVED PATIENT TO ROOM 2203 VIA STRETCHER FROM THE EMERGENCY ROOM. PATIENT IS FROM [facility]. PATIENT IS AWAKE, ALERT, AND ORIENTED TO PERSON ONLY. PATIENT IS DISORIENTED TO TIME, PLACE, AND SITUATION. ORIENTED PATIENT TO ROOM AND CALL LIGHT. FAMILY MEMBERS HERE WITH PATIENT.
[2017-02-22 16:42] VITALS: BP 110/92
[2017-02-22 17:55] VITALS: BP 110/92; BMI 40.2
[2017-02-22 19:00] VITALS: BP 151/70
--- NOTE | 2017-02-22 19:20 | NUR ---
RECIEVED SHIFT REPORT. PT IS LYING IN BED. PT IS ORIENTED TO SELF AND TIME ONLY AT THIS TIME. IV IS PATENT AND SALINE LOC AT THIS TIME. MINA IS DRAINING URINE BY GRAVITY. PT REQUIRES ASSISTANCE TURNING IN BED FOR COMFORT AND SKIN CARE. O2 @ 2 PER NASAL CANNULA. PT DENIES ANY PAIN AT THIS TIME. NO NEEDS ARE VERBALIZED AT THIS TIME. WILL CONTINUE TO MONITOR. SIDE RAILS ARE UP X 2. BED IS IN LOWEST POSITION. BED ALARM IS ON FOR SAFETY. CALL LIGHT IS WITHIN REACH.
--- NOTE | 2017-02-22 22:00 | NUR ---
SHIFT ASSESSMENT COMPLETED. NIGHT MEDS GIVEN WITH NO PROBLEMS. HUMULIN NOT ADMINISTERED AT THIS TIME. FJIZ=633. PT STATES HE DOES NOT WANT ANY SNACKS AT THIS TIME. NO FURTHER NEEDS AT THIS TIME. WILL MONITOR. SIDE RAILS X 2. BED LOW. CALL LIGHT IN REACH.
[2017-02-23] VITALS: BP 108/69
[2017-02-23 04:00] VITALS: BP 126/76
[2017-02-23 05:42] LABS: BASOPHILS 0.2 % (0-2); EOSINOPHILS 1.6 % (0-7); HEMATOCRIT 40.3 % (42.0-54.0); IMMATURE GRANULOCYTES 0.5 % (0-5); MCH 27.1 pg (26.0-34.0); MCHC 32.3 g/dL (31.0-37.0); MCV 84.1 fL (80.0-100.0); MEAN PLATELET VOLUME 10.4 fL (7.4-10.4); NEUTROPHILS 69.7 % (40-80); PLATELET COUNT 189 10x3/uL (130-400); RBC 4.79 10x6/uL (4.20-6.10); RDW 13.5 % (11.5-14.5); WBC 9.6 10x3/uL (4.8-10.8)
[2017-02-23 06:15] LABS: CALCIUM 9.2 mg/dL (8.5-10.1); CARBON DIOXIDE 36.4 mmol/L (21.0-32.0); CHOL - HDL RATIO 4.2 ratio (2.3-4.9); CREATININE - SERUM 1.6 mg/dL (0.6-1.3); DIGOXIN 1.08 ng/mL (0.90-2.00); LDL-HDL RATIO 2.1 ratio (1.5-3.5); THYROID STIMULATING HORMONE 1.38 uIU/mL (0.36-3.74)
[2017-02-23 06:18] LABS: POTASSIUM - SERUM 3.4 mmol/L (3.5-5.1)
--- NOTE | 2017-02-23 07:00 | NUR ---
PT REC'D FROM DYLAN FRAUSTO. RESTING IN BED WITH EYES CLOSED. EASILY AROUSED. AAOX4. NO COMPLAINTS OF PAIN. REGULAR HEART RATE AND RHYTHM. LUNG SOUNDS CLEAR AND EQUAL BILAT. BOWEL SOUNDS ACTIVE X4 QUADS. CHRONIC MINA CATHETER IN PLACE DRAINING YELLOW URINE WITH A MODERATE AMOUNT OF SEDIMENT TO GRAVITY. PIV TO L HAND FREE OF REDNESS AND SWELLING. BED LOW, CALL LIGHT IN REACH, DENIES NEEDS. CPOC.
[2017-02-23 08:38] VITALS: BP 139/84
--- NOTE | 2017-02-23 09:05 | NUR ---
MORNING MEDS PASSED AT THIS TIME. FRESH WATER PROVIDED. BED LOW CALL LIGHT IN REACH, DENIES NEEDS. CPOC.
[2017-02-23 11:59] VITALS: Ht 167.6 cm; Wt 112.9 kg
--- NOTE | 2017-02-23 12:00 | NUR ---
PATIENT IN MID MEDRANO POSITION RESTING WITH EYES CLOSED. RESPIRATIONS EVEN AND UNLABORED. PRIMARY NURSE CHEYENNE TIJERINA AT BEDSIDE. SIDE RAILS UP X2. BED IN LOW POSITION. CALL LIGHT IN REACH.
--- NOTE | 2017-02-23 12:00 | NUR ---
CURRENT FSBS 208. 4 UNITS OF INSULIN ADMINISTERED PER SS.
[2017-02-23 13:30] VITALS: BP 99/65
--- NOTE | 2017-02-23 15:03 | NUR ---
PT RESTING IN BED WITH EYES CLOSED. RESP EVEN AND UNLABORED. BED LOW, CALL LIGHT IN REACH, CPOC.
[2017-02-23 17:05] VITALS: BP 82/48
--- NOTE | 2017-02-23 19:15 | NUR ---
RECIEVED SHIFT REPORT. PT IS LYING IN BED. PT IS ALERT AND ORIENTED AND ABLE VERBALIZE NEEDS THIS EVENING. IV IS PATENT AND SALINE LOC AT THIS TIME. MINA IS DRAINING URINE BY GRAVITY. O2 @ 2 PER NASAL CANNULA. PT REQUIRES ASSISTANCE TURNING IN BED FOR COMFORT AND SKIN CARE. PT DENIES ANY PAIN AT THIS TIME. NO NEEDS ARE VERBALIZED AT THIS TIME. WILL CONTINUE TO MONITOR. SIDE RAILS ARE UP X 2. BED IS IN LOWEST POSITION. BED ALARM IS ON FOR SAFETY. CALL LIGHT IS WITHIN REACH.
[2017-02-23 20:00] VITALS: BP 89/43
--- NOTE | 2017-02-23 22:44 | NUR ---
SHIFT ASSESSMENT COMPLETED. PT C/O NAUSEA. ADMINISTERED PRESCRIBED PRN ZOFRAN PER ORDER. DENIES FURTHER NEEDS. WILL MONITOR. SIDE RAILS X 2. BED LOW. BED ALARM ON. CALL LIGHT IN REACH.
[2017-02-24] VITALS: BP 103/52
[2017-02-24 04:00] VITALS: BP 99/50
[2017-02-24 07:47] LABS: BASOPHILS 0.5 % (0-2); EOSINOPHILS 1.5 % (0-7); HEMATOCRIT 37.4 % (42.0-54.0); HEMOGLOBIN 11.9 g/dL (13.5-17.5); IMMATURE GRANULOCYTES 1.1 % (0-5); LYMPHOCYTES 21.6 % (15-50); MCH 27.2 pg (26.0-34.0); MCHC 31.8 g/dL (31.0-37.0); MCV 85.6 fL (80.0-100.0); MEAN PLATELET VOLUME 10.2 fL (7.4-10.4); MONOCYTES 10.9 % (2-11); NEUTROPHILS 64.4 % (40-80); PLATELET COUNT 174 10x3/uL (130-400); RBC 4.37 10x6/uL (4.20-6.10); RDW 13.7 % (11.5-14.5); WBC 8.1 10x3/uL (4.8-10.8)
--- NOTE | 2017-02-24 08:05 | NUR ---
PT SITTING IN SEMI-FOWLERS POSITION ASLEEP. NO VISABLE SIGNS OF PAIN OR DISCOMFORT AT THIS TIME. BED IN LOW POSITION AND CALL LIGHT WITHIN REACH. WILL CONTINUE TO MONITOR.
[2017-02-24 08:17] LABS: ALBUMIN 2.9 g/dL (3.4-5.0); ANION GAP 10.6 mmol/L (8-16); BILIRUBIN - TOTAL 0.33 mg/dL (0.2-1.3); CALCIUM 9.2 mg/dL (8.5-10.1); CARBON DIOXIDE 33.5 mmol/L (21.0-32.0); PROTEIN - SERUM 7.4 g/dL (6.4-8.2)
--- NOTE | 2017-02-24 08:21 | NUR ---
Patient Name: GOMEZ SANTO Admission Status: ER Accout number: [id number] Admission Date: 02-22-2017 : 1945 Admission Diagnosis: Attending: RODY Current LOS: 2 Anticipated DC Date: Planned Disposition: [facility] Facility Primary Insurance: MEDICARE A & B Discharge Planning Comments: CM MET WITH PATIENT TO ASSESS DISCHARGE PLANNING NEEDS. PATIENT STATES THAT HE IS RESIDENT AT [facility] HE PLANS TO RETURN. HE STATES HE IS TOTAL CARE. HE STATES HE HAS A DAUGHTER BY THE NAME OF JOSE GAITAN CM WILL CONTINUE TO FOLLOW AND ASSIST NEEDED. PCP: [facility] JOSE GAITAN [phone] Photographs Curator: Hollie Franklin * Is the patient Alert and Oriented? Yes 0 * PCP SALMA 0 * Pharmacy [facility] 0 * Preadmission Environment [facility] 0 * ADLs Total Dependent 0 * Equipment Wheelchair 0 * List name and contact numbers for known caregivers / representatives who currently or will assist patient after discharge: LEE ANN SANTO 0 * Additional services required to return to the preadmission environment? No 0 * Can the patient safely return to the preadmission environment? Yes 0 * Has this patient been hospitalized within the prior 30 days at any hospital? No 0 Grand Total: 0
[2017-02-24 08:22] LABS: CREATININE - SERUM 2.3 mg/dL (0.6-1.3); POTASSIUM - SERUM 4.1 mmol/L (3.5-5.1)
[2017-02-24 09:23] VITALS: BP 124/59
[2017-02-24 12:59] VITALS: BP 80/47
[2017-02-24 16:58] VITALS: BP 120/54
--- NOTE | 2017-02-24 19:50 | NUR ---
RECIEVED SHIFT REPORT. PT IS LYING IN BED. ALERT AND ORIENTED AND ABLE TO VERBALIZE NEEDS. IV IS PATENT AND SALINE LOC AT THIS TIME. O2 @ 2 PER NASAL CANNULA. MINA IS DRAINING URINE BY GRAVITY. PT REQUIRES SOME ASSISTANCE TURNING IN BED FOR COMFORT AND SKIN CARE. PT STATES PAIN IS 5/10. NO NEEDS ARE VERBALIZED AT THIS TIME. WILL CONTINUE TO MONITOR. SIDE RAILS ARE UP X 2. BED IS IN LOWEST POSITION. BED ALARM IS ON FOR SAFETY. CALL LIGHT IS WITHIN REACH.
[2017-02-24 20:00] VITALS: BP 86/45
--- NOTE | 2017-02-24 22:08 | NUR ---
SHIFT ASSESSMENT COMPLETED. NIGHT MEDS GIVEN WITH NO PROBLEMS. PT RECIEVED 8 UNITS INSULIN PER SLIDING SCALE FOR ZDEJ=404. SCHEDULED LANTUS GIVEN PER ORDER. CATAPRES HELD FOR B/P=85/48. NO NEEDS ARE VOICED. WILL MONITOR. SIDE RAILS X 2. BED LOW. BED ALARM ON. CALL LIGHT IN REACH.
[2017-02-25] VITALS: BP 102/68
[2017-02-25] MEDS ORDERED: LINZESS145 MCG PO (07:24)
[2017-02-25] MEDS ORDERED: LANTUS INSULIN10 ML SC (07:25)
[2017-02-25] MEDS ORDERED: CARDIZEM CD240 MG PO (07:40)
--- NOTE | 2017-02-25 07:50 | NUR ---
PT AOX4 RESP EVEN AND NONLABORED PT DENIES NEEDS AT THIS TIME SRX2 BED AT LOWEST SETTING CALL LIGHT WITHIN REACH IV TO LEFT HAND PATENT AND INTACT AT THIS TIME WILL CONTINUE TO MONITOR
[2017-02-25 09:52] VITALS: BP 103/64
--- NOTE | 2017-02-25 11:45 | NUR ---
IV DISCONTINUED WITH CATHETER INTACT AT THIS TIME
--- NOTE | 2017-02-25 12:00 | NUR ---
REPORT CALLED TO YISEL AT [facility]. IV DISCONTINUED WITH TIP INTACT. AMBULANCE CALLED FOR TRANSPORTATION.
[2017-02-25 13:07] VITALS: BP 104/59
--- NOTE | 2017-02-25 14:06 | NUR ---
PT TAKEN VIA STRETCHER VIA [facility] TO [facility] AT THIS TIME
--- NOTE | 2017-02-25 14:41 | NUR ---
patient discharged home to a detention bed at [facility] via EMS
== END 2017-02-25 14:08 | DRG 699 ==
LOC: D.ER 11:22 → D.MS 14:11
PROVIDERS: Emergency Medicine; ADMIT Family Medicine
DX: T83.518A Infection and inflammatory reaction due to other urinary catheter, initial encounter (principal); B37.49 Other urogenital candidiasis; I69.354 Hemiplegia and hemiparesis following cerebral infarction affecting left non-dominant side; E86.0 Dehydration; E11.40 Type 2 diabetes mellitus with diabetic neuropathy, unspecified; Z79.4 Long term (current) use of insulin; I48.91 Unspecified atrial fibrillation; I25.10 Atherosclerotic heart disease of native coronary artery without angina pectoris; I69.319 Unspecified symptoms and signs involving cognitive functions following cerebral infarction; E03.9 Hypothyroidism, unspecified; K59.00 Constipation, unspecified; J44.9 Chronic obstructive pulmonary disease, unspecified; N40.1 Benign prostatic hyperplasia with lower urinary tract symptoms; N39.498 Other specified urinary incontinence; M19.90 Unspecified osteoarthritis, unspecified site; E78.5 Hyperlipidemia, unspecified; F32.9 Major depressive disorder, single episode, unspecified

== ENCOUNTER 2017-12-30 11:37 | Inpatient (IN) | payer MEDICARE ==
[~2017-12-30] VITALS: Ht 167.6 cm; Wt 108.2 kg
--- NOTE | ~2017-12-30 | EC ---
PATIENT:GOMEZ SANTO DATE OF SERVICE: 12/30/17 SEX: M MEDICAL RECORD: [id number] DATE OF : [birth year] LOCATION:D.M2 D.212 AGE OF PATIENT: 72 ADMISSION DATE: 12/30/17 REFERRING PHYSICIAN: INTERPRETING PHYSICIAN: PAOLO FRANZ MD ECHOCARDIOGRAM REPORT ECHO CHARGES 4 ECHO COMPLETE Date: 12/31 CLINICAL DIAGNOSIS: CHF ECHOCARDIOGRAPHIC MEASUREMENTS (adult normal given) AC root (d.<3.7cm) 3.9 cm LV Septum d (<1.2 cm> 1.9 cm Valve Excursion 2.0 cm LV Septum (systole) 2.2 cm Left Atria (s.<4.0cm> 3.9 cm LVPW d(<1.2cm) 1.6 cm RV (d.<2.3cm) 3.8 cm LVPW (sytole) 2.0 cm LV diastole(<5.6CM) 4.8 cm MV E-F(>70mm/sec) cm LV systole 3.2 cm LVOT Diameter 1.6 cm MV exc.(>10mm) 2.3 cm Est.ejection fraction (50-75%) % DOPPLER: LVIT cm/sec A 38.0 cm/sec E 93.0 cm/sec LA cm/sec RVSP 23 mmHg LVOT 105 cm/sec AOP1/2T m/s Asc. Ao 181 cm/sec RVOT 122 cm/sec RA cm/sec PA 163 cm/sec AV Gradient Peak 13.11mmHg AV Mean 6.46 mmHg AV Area 1.3 cm MV Gradient Peak 5.77 mmHg MV Mean 1.57 mmHg MV Area cm COMMENTS: Wharfmaster: Thaddeus HADLEY Sales And Service Officer: 1 Dr. Franz TAPE# PACS Pericardial Effusion N DATE OF SERVICE: 12/31/2017 Echocardiogram FINDINGS: 1. Left ventricular chamber size is within normal limits. Left ventricular systolic function is normal. Overall ejection fraction estimated at 55%. 2. Left atrium, right atrium, and right ventricular chamber sizes are within normal limits. 3. Valvular structures have normal structure and motion. ECHOCARDIOGRAM REPORT [id number] GOMEZ SANTO 4. Doppler interrogation reveals no significant valvular insufficiency or stenosis. 5. No evidence of pericardial effusion or left ventricular thrombus. TRANSINT:[id number] Voice Confirmation ID: [id number] DOCUMENT ID: [id number] PAOLO FRANZ MD at 1710 CC: [id number] DICTATION DATE: 12/31/17 1347 DIRECTOR OF CAMPUS RECREATION: 12/31/17 1420 ADM IN [facility] [address] [id number]
[~2017-12-30 11:37] MED LIST changes: +CARDIZEM CD240 MG PO; +LINZESS145 MCG PO
[2017-12-30 12:28] LABS: BASOPHILS 0.2 % (0-2); HEMATOCRIT 27.9 % (42.0-54.0); HEMOGLOBIN 8.3 g/dL (13.5-17.5); LYMPHOCYTES 14.9 % (15-50); MCH 23.2 pg (26.0-34.0); MCHC 29.7 g/dL (31.0-37.0); MCV 78.2 fL (80.0-100.0); MEAN PLATELET VOLUME 9.3 fL (7.4-10.4); MONOCYTES 8.5 % (2-11); NEUTROPHILS 74.4 % (40-80); RBC 3.57 10x6/uL (4.20-6.10); RDW 17.4 % (11.5-14.5); WBC 13.3 10x3/uL (4.8-10.8)
[2017-12-30 12:43] LABS: PLATELET COUNT 226 10x3/uL (130-400)
[2017-12-30 13:01] LABS: APPEARANCE HAZY (CLEAR); BILIRUBIN 1+ (NEGATIVE); COLOR YELLOW (YELLOW); GLUCOSE NEGATIVE (NEGATIVE); KETONE NEGATIVE (NEGATIVE); NITRITE NEGATIVE (NEGATIVE); PROTEIN 1+ mg/dL (NEGATIVE); UROBILINOGEN NORMAL (NORMAL)
[2017-12-30 13:07] LABS: WHITE CELLS - URINE >50 /hpf (0-5)
[2017-12-30 13:08] LABS: AMORPHOUS SEDIMENT <1+ /lpf (NONE SEEN); BACTERIA MANY /hpf (NONE SEEN); EPITHELIAL CELLS 0-5 /hpf (0-5); RED CELLS - URINE 0-5 /hpf (0-5)
[2017-12-30 13:09] LABS: YEAST <1+ /hpf (NONE SEEN)
[2017-12-30 13:32] LABS: ALBUMIN 2.3 g/dL (3.4-5.0); ALKALINE PHOSPHATASE 57 U/L (46-116); ALT (SGPT) 12 U/L (10-68); BILIRUBIN - TOTAL 0.24 mg/dL (0.2-1.3); CALCIUM 9.1 mg/dL (8.5-10.1); CARBON DIOXIDE 28.1 mmol/L (21.0-32.0); CHLORIDE - SERUM 96 mmol/L (98-107); CKMB 0.6 U/L (0.0-3.6); CREATININE - SERUM 4.1 mg/dL (0.6-1.3); MAGNESIUM - SERUM 2.2 mg/dL (1.8-2.4); POTASSIUM - SERUM 5.6 mmol/L (3.5-5.1); PRO BNP 9913 pg/mL (0-125); PROTEIN - SERUM 7.4 g/dL (6.4-8.2); SODIUM 132 mmol/L (136-145); UREA NITROGEN 43 mg/dL (7-18); eGFR NON AFRICAN AMERICAN 15 mL/min (90-120)
[2017-12-30 13:35] VITALS: BP 095/036
[2017-12-30 13:47] LABS: CALC OSMOLALITY 275 mosm/kg (275-300); CREATINE KINASE 5 UL (21-232); GLUCOSE 106 mg/dL (74-106); LIPASE 49 U/L (73-393); TROPONIN-I < 0.017 ng/mL (0.000-0.060)
[2017-12-30 13:48] VITALS: BP 099/048
[2017-12-30 13:51] VITALS: BP 105/34
[2017-12-30 16:59] VITALS: BP 78/52; BMI 27.8
[2017-12-30 20:46] VITALS: BP 88/56
[2017-12-30 21:29] VITALS: BP 92/45
[2017-12-31] VITALS: BP 99/39
[2017-12-31 04:00] VITALS: BP 95/48
[2017-12-31 05:02] LABS: BASOPHILS 0.4 % (0-2); EOSINOPHILS 1.7 % (0-7); HEMATOCRIT 27.9 % (42.0-54.0); HEMOGLOBIN 8.3 g/dL (13.5-17.5); IMMATURE GRANULOCYTES 0.7 % (0-5); LYMPHOCYTES 13.6 % (15-50); MCH 23.2 pg (26.0-34.0); MCHC 29.7 g/dL (31.0-37.0); MCV 77.9 fL (80.0-100.0); MEAN PLATELET VOLUME 9.6 fL (7.4-10.4); MONOCYTES 11.5 % (2-11); NEUTROPHILS 72.1 % (40-80); PLATELET COUNT 230 10x3/uL (130-400); RBC 3.58 10x6/uL (4.20-6.10); RDW 17.6 % (11.5-14.5); WBC 10.6 10x3/uL (4.8-10.8)
[2017-12-31 05:23] LABS: ALBUMIN 2.3 g/dL (3.4-5.0); ANION GAP 11.5 mmol/L (8-16); BILIRUBIN - TOTAL 0.4 mg/dL (0.2-1.3); CALCIUM 8.8 mg/dL (8.5-10.1); CARBON DIOXIDE 31.7 mmol/L (21.0-32.0); CREATININE - SERUM 4.4 mg/dL (0.6-1.3); POTASSIUM - SERUM 5.2 mmol/L (3.5-5.1)
[2017-12-31 05:48] LABS: PROTEIN - SERUM 7.4 g/dL (6.4-8.2)
[2017-12-31 07:56] VITALS: BP 99/55
[2017-12-31 12:22] VITALS: BP 122/60
[2017-12-31 12:45] VITALS: BMI 27.7
[2017-12-31 14:04] VITALS: Ht 167.6 cm; Wt 108.2 kg
[2017-12-31 14:58] LABS: % SATURATION 8 % (15-55); IRON 27 ug/dl (35-150); TOTAL IRON BIND CAPACITY 316 ug/dl (260-445); UNSAT IRON BIND CAPACITY 289 ug/dl (150-375)
[2017-12-31 15:42] VITALS: BP 118/50
[2017-12-31 20:13] VITALS: BP 147/60
[2018-01-01 01:27] VITALS: BP 137/64
[2018-01-01 05:13] VITALS: BP 104/59
[2018-01-01 06:29] LABS: CALCIUM 8.7 mg/dL (8.5-10.1); CARBON DIOXIDE 27.2 mmol/L (21.0-32.0); CREATININE - SERUM 4.8 mg/dL (0.6-1.3); PHOSPHOROUS 6.7 mg/dL (2.5-4.9); POTASSIUM - SERUM 5.2 mmol/L (3.5-5.1)
[2018-01-01 06:30] LABS: BASOPHILS 0.2 % (0-2); HEMOGLOBIN 8.3 g/dL (13.5-17.5); IMMATURE GRANULOCYTES 0.6 % (0-5); LYMPHOCYTES 10.9 % (15-50); MCHC 29.6 g/dL (31.0-37.0); MCV 77.6 fL (80.0-100.0); MEAN PLATELET VOLUME 9.4 fL (7.4-10.4); MONOCYTES 11.9 % (2-11); NEUTROPHILS 75.4 % (40-80); PLATELET COUNT 228 10x3/uL (130-400); RBC 3.61 10x6/uL (4.20-6.10); RDW 17.3 % (11.5-14.5); WBC 9.3 10x3/uL (4.8-10.8)
[2018-01-01 07:40] VITALS: BP 134/67
[2018-01-01 12:02] VITALS: BP 143/60
[2018-01-01 15:41] VITALS: BP 143/63
[2018-01-01 21:24] VITALS: BP 132/71
[2018-01-02 01:30] VITALS: BP 104/82
[2018-01-02 06:13] LABS: BASOPHILS 0.2 % (0-2); EOSINOPHILS 1.2 % (0-7); HEMATOCRIT 28.5 % (42.0-54.0); HEMOGLOBIN 8.5 g/dL (13.5-17.5); IMMATURE GRANULOCYTES 0.8 % (0-5); LYMPHOCYTES 8.5 % (15-50); MCH 23.4 pg (26.0-34.0); MCHC 29.8 g/dL (31.0-37.0); MCV 78.3 fL (80.0-100.0); MEAN PLATELET VOLUME 9.3 fL (7.4-10.4); MONOCYTES 10.4 % (2-11); NEUTROPHILS 78.9 % (40-80); PLATELET COUNT 253 10x3/uL (130-400); RBC 3.64 10x6/uL (4.20-6.10); RDW 17.4 % (11.5-14.5); WBC 10.5 10x3/uL (4.8-10.8)
[2018-01-02 06:28] VITALS: BP 119/57
[2018-01-02 06:28] LABS: CARBON DIOXIDE 25.2 mmol/L (21.0-32.0); CREATININE - SERUM 4.1 mg/dL (0.6-1.3)
[2018-01-02 06:29] LABS: COMPLEMENT C4 31.9 mg/dL (17.4-52.2)
[2018-01-02 06:32] LABS: PHOSPHOROUS 4.6 mg/dL (2.5-4.9); POTASSIUM - SERUM 4.2 mmol/L (3.5-5.1)
[2018-01-02 08:02] VITALS: BP 142/55
[2018-01-02 11:25] VITALS: BP 136/65
[2018-01-02 15:39] VITALS: BP 162/77
[2018-01-02 22:41] VITALS: BP 140/56
[2018-01-03 01:53] VITALS: BP 128/71
[2018-01-03 05:02] LABS: BASOPHILS 0.5 % (0-2); EOSINOPHILS 2.6 % (0-7); HEMATOCRIT 30.3 % (42.0-54.0); IMMATURE GRANULOCYTES 0.7 % (0-5); LYMPHOCYTES 9.3 % (15-50); MCH 23.1 pg (26.0-34.0); MCHC 29.7 g/dL (31.0-37.0); MCV 77.7 fL (80.0-100.0); MONOCYTES 10.9 % (2-11); PLATELET COUNT 243 10x3/uL (130-400); RDW 17.1 % (11.5-14.5); WBC 9.4 10x3/uL (4.8-10.8)
[2018-01-03 05:22] LABS: ANION GAP 10.7 mmol/L (8-16); CALCIUM 8.9 mg/dL (8.5-10.1); CARBON DIOXIDE 28.3 mmol/L (21.0-32.0); CREATININE - SERUM 3.1 mg/dL (0.6-1.3)
[2018-01-03 06:25] VITALS: BP 175/75
[2018-01-03 09:01] VITALS: BP 133/73
[2018-01-03 13:32] VITALS: BP 160/79
[2018-01-03 20:30] VITALS: BP 124/62
[2018-01-04 04:30] VITALS: BP 116/53
[2018-01-04 06:57] LABS: BASOPHILS 0.3 % (0-2); EOSINOPHILS 2.5 % (0-7); HEMATOCRIT 28.5 % (42.0-54.0); HEMOGLOBIN 8.4 g/dL (13.5-17.5); IMMATURE GRANULOCYTES 0.6 % (0-5); LYMPHOCYTES 11.4 % (15-50); MCH 23.4 pg (26.0-34.0); MCHC 29.5 g/dL (31.0-37.0); MCV 79.4 fL (80.0-100.0); MEAN PLATELET VOLUME 8.6 fL (7.4-10.4); MONOCYTES 9.4 % (2-11); NEUTROPHILS 75.8 % (40-80); PLATELET COUNT 216 10x3/uL (130-400); RBC 3.59 10x6/uL (4.20-6.10); RDW 17.3 % (11.5-14.5); WBC 9.5 10x3/uL (4.8-10.8)
[2018-01-04 07:08] LABS: ANION GAP 10.7 mmol/L (8-16); CARBON DIOXIDE 28.4 mmol/L (21.0-32.0); CREATININE - SERUM 2.4 mg/dL (0.6-1.3); PHOSPHOROUS 3.8 mg/dL (2.5-4.9); POTASSIUM - SERUM 4.1 mmol/L (3.5-5.1)
[2018-01-04 09:03] VITALS: BP 128/66
[2018-01-04 09:04] VITALS: BP 113/31
[2018-01-04 12:36] VITALS: BP 104/60
[2018-01-04 16:34] VITALS: BP 101/50
[2018-01-04 17:11] LABS: SPE - A/G RATIO 0.6 (0.7-1.7); SPE - ALBUMIN 2.5 g/dL (2.9-4.4); SPE - ALPHA-1 GLOBULIN 0.4 g/dL (0.0-0.4); SPE - ALPHA-2 GLOBULIN 0.8 g/dL (0.4-1.0); SPE - BETA GLOBULIN 1.2 g/dL (0.7-1.3); SPE - GAMMA GLOBULIN 1.6 g/dL (0.4-1.8); SPE - M-SPIKE Not Observed g/dL (Not Observed); SPE - TOTAL PROTEIN 6.5 g/dL (6.0-8.5)
[2018-01-04 19:59] VITALS: BP 128/74
[2018-01-05 01:09] VITALS: BP 120/59
[2018-01-05 06:00] LABS: BASOPHILS 0.5 % (0-2); EOSINOPHILS 2.6 % (0-7); HEMATOCRIT 29.8 % (42.0-54.0); HEMOGLOBIN 8.7 g/dL (13.5-17.5); LYMPHOCYTES 10.1 % (15-50); MCH 23.3 pg (26.0-34.0); MCHC 29.2 g/dL (31.0-37.0); MCV 79.7 fL (80.0-100.0); MEAN PLATELET VOLUME 9.1 fL (7.4-10.4); MONOCYTES 8.5 % (2-11); NEUTROPHILS 77.3 % (40-80); PLATELET COUNT 256 10x3/uL (130-400); RBC 3.74 10x6/uL (4.20-6.10); RDW 17.5 % (11.5-14.5); WBC 9.8 10x3/uL (4.8-10.8)
[2018-01-05 06:05] VITALS: BP 133/63
[2018-01-05 06:45] LABS: ALBUMIN 2.4 g/dL (3.4-5.0); ANION GAP 12.8 mmol/L (8-16); BILIRUBIN - TOTAL 0.14 mg/dL (0.2-1.3); CALCIUM 9.4 mg/dL (8.5-10.1); CARBON DIOXIDE 26.8 mmol/L (21.0-32.0); CREATININE - SERUM 2.4 mg/dL (0.6-1.3); PHOSPHOROUS 3.6 mg/dL (2.5-4.9); POTASSIUM - SERUM 4.6 mmol/L (3.5-5.1); PROTEIN - SERUM 7.9 g/dL (6.4-8.2); THYROID STIMULATING HORMONE 4.64 uIU/mL (0.36-3.74)
[2018-01-05 20:43] VITALS: BP 112/54
[2018-01-06 00:28] VITALS: BP 114/54
[2018-01-06 04:44] VITALS: BP 141/56
[2018-01-06 05:47] LABS: BASOPHILS 0.4 % (0-2); EOSINOPHILS 2.7 % (0-7); HEMATOCRIT 30.3 % (42.0-54.0); IMMATURE GRANULOCYTES 1.6 % (0-5); MCH 23.4 pg (26.0-34.0); MCHC 29.7 g/dL (31.0-37.0); MCV 78.9 fL (80.0-100.0); MEAN PLATELET VOLUME 9.3 fL (7.4-10.4); MONOCYTES 8.4 % (2-11); NEUTROPHILS 72.9 % (40-80); PLATELET COUNT 263 10x3/uL (130-400); RBC 3.84 10x6/uL (4.20-6.10); RDW 17.4 % (11.5-14.5); WBC 9.3 10x3/uL (4.8-10.8)
[2018-01-06 06:20] LABS: ANION GAP 14.2 mmol/L (8-16); CALCIUM 9.3 mg/dL (8.5-10.1); CARBON DIOXIDE 25.1 mmol/L (21.0-32.0); CREATININE - SERUM 2.2 mg/dL (0.6-1.3); DIGOXIN 0.62 ng/mL (0.90-2.00); PHOSPHOROUS 2.8 mg/dL (2.5-4.9); POTASSIUM - SERUM 4.3 mmol/L (3.5-5.1)
[2018-01-06 08:07] VITALS: BP 120/65
[2018-01-06 12:19] VITALS: BP 133/68
[2018-01-06 15:50] VITALS: BP 120/58
[2018-01-06 17:14] LABS: ANCA - ANTIMYELOPEROXIDASE <9.0 U/mL (0.0-9.0); ANCA - ANTIPROTEINASE 3 9.4 U/mL (0.0-3.5); ANCA - ATYPICAL <1:20 titer (Neg:<1:20); ANCA - CYTOPLASMIC <1:20 titer (Neg:<1:20); ANCA - PERINUCLEAR <1:20 titer (Neg:<1:20)
[2018-01-06 20:10] VITALS: BP 104/53
[2018-01-07 00:58] VITALS: BP 100/54
[2018-01-07 05:34] VITALS: BP 135/83
[2018-01-07 06:18] LABS: EOSINOPHILS 3.9 % (0-7); HEMATOCRIT 29.6 % (42.0-54.0); HEMOGLOBIN 8.7 g/dL (13.5-17.5); IMMATURE GRANULOCYTES 2.2 % (0-5); LYMPHOCYTES 16.4 % (15-50); MCH 23.4 pg (26.0-34.0); MCHC 29.4 g/dL (31.0-37.0); MCV 79.6 fL (80.0-100.0); MEAN PLATELET VOLUME 9.2 fL (7.4-10.4); MONOCYTES 8.8 % (2-11); NEUTROPHILS 67.7 % (40-80); PLATELET COUNT 277 10x3/uL (130-400); RBC 3.72 10x6/uL (4.20-6.10); RDW 17.9 % (11.5-14.5); WBC 10.3 10x3/uL (4.8-10.8)
[2018-01-07 06:54] LABS: ANION GAP 13.7 mmol/L (8-16); CALCIUM 9.3 mg/dL (8.5-10.1); CARBON DIOXIDE 25.3 mmol/L (21.0-32.0); PHOSPHOROUS 3.4 mg/dL (2.5-4.9)
[2018-01-07 08:20] VITALS: BP 123/74
[2018-01-07 11:44] VITALS: BP 136/65
[2018-01-12 03:10] LABS: ANA REFLEX - DIRECT Negative (Negative); ANTI-GLOMERULAR BASMENT MEMBRN 5 units (0-20); HEPATITIS C ANTIBODY 0.3 (0.0-0.9)
== END 2018-01-07 20:30 | DRG 682 ==
LOC: D.ER 11:37 → D.EDHOLD 14:20 → D.M2 14:20
PROVIDERS: Family Medicine; Internal Medicine Nephrology
DX: N17.0 Acute kidney failure with tubular necrosis (principal); I50.21 Acute systolic (congestive) heart failure; G93.41 Metabolic encephalopathy; I13.0 Hypertensive heart and chronic kidney disease with heart failure and stage 1 through stage 4 chronic kidney disease, or unspecified chronic kidney disease; E44.0 Moderate protein-calorie malnutrition; N39.0 Urinary tract infection, site not specified; I48.91 Unspecified atrial fibrillation; E11.22 Type 2 diabetes mellitus with diabetic chronic kidney disease; N18.3 Chronic kidney disease, stage 3 (moderate); I25.10 Atherosclerotic heart disease of native coronary artery without angina pectoris; G20 Parkinson's disease; K21.9 Gastro-esophageal reflux disease without esophagitis; I95.9 Hypotension, unspecified; E03.9 Hypothyroidism, unspecified; N30.90 Cystitis, unspecified without hematuria; D50.9 Iron deficiency anemia, unspecified; Z68.27 Body mass index [BMI] 27.0-27.9, adult; E87.5 Hyperkalemia; E78.5 Hyperlipidemia, unspecified; R53.81 Other malaise; R33.9 Retention of urine, unspecified; I87.2 Venous insufficiency (chronic) (peripheral); N40.0 Benign prostatic hyperplasia without lower urinary tract symptoms; E11.43 Type 2 diabetes mellitus with diabetic autonomic (poly)neuropathy; N31.2 Flaccid neuropathic bladder, not elsewhere classified

== ENCOUNTER 2018-06-10 09:29 | Emergency (ER) | payer MEDICARE ==
[2018-06-10 09:33] VITALS: BP 175/084; Ht 167.6 cm
== END 2018-06-10 18:53 | disposition home or self-care (01) ==
LOC: D.ER 09:29
DX: T83.018A Breakdown (mechanical) of other urinary catheter, initial encounter (principal); I48.91 Unspecified atrial fibrillation; E11.9 Type 2 diabetes mellitus without complications; Z86.73 Personal history of transient ischemic attack (TIA), and cerebral infarction without residual deficits; G20 Parkinson's disease; I10 Essential (primary) hypertension

== ENCOUNTER 2018-09-24 22:27 | Inpatient (IN) | payer MEDICARE ==
[~2018-09-24] VITALS: Ht 167.6 cm; Wt 113.4 kg
[2018-09-24 22:48] LABS: APPEARANCE HAZY (CLEAR); COLOR YELLOW (YELLOW); NITRITE POSITIVE (NEGATIVE)
[2018-09-24 22:49] LABS: BACTERIA MODERATE /hpf (NONE SEEN); BILIRUBIN NEGATIVE (NEGATIVE); EPITHELIAL CELLS 0-5 /hpf (0-5); GLUCOSE 1000 mg/dL (NEGATIVE); KETONE NEGATIVE (NEGATIVE); PROTEIN TRACE mg/dL (NEGATIVE); RED CELLS - URINE 0-5 /hpf (0-5); UROBILINOGEN NORMAL (NORMAL)
[2018-09-24 22:50] LABS: YEAST >1+ /hpf (NONE SEEN)
[2018-09-24 22:58] LABS: UDS - AMPHET NEGATIVE QUAL (NEGATIVE); UDS - BARB NEGATIVE QUAL (NEGATIVE); UDS - BENZO NEGATIVE QUAL (NEGATIVE); UDS - COCAINE NEGATIVE QUAL (NEGATIVE); UDS - OPIATE POSITIVE QUAL (NEGATIVE); UDS - PCP NEGATIVE QUAL (NEGATIVE); UDS - THC NEGATIVE QUAL (NEGATIVE)
[2018-09-24 23:03] LABS: BASOPHILS 0.4 % (0-2); EOSINOPHILS 2.3 % (0-7); HEMOGLOBIN 12.5 g/dL (13.5-17.5); IMMATURE GRANULOCYTES 0.6 % (0-5); LYMPHOCYTES 16.1 % (15-50); MCH 26.7 pg (26.0-34.0); MCHC 32.1 g/dL (31.0-37.0); MCV 83.2 fL (80.0-100.0); MEAN PLATELET VOLUME 10.3 fL (7.4-10.4); MONOCYTES 9.2 % (2-11); NEUTROPHILS 71.4 % (40-80); PLATELET COUNT 200 10x3/uL (130-400); RBC 4.69 10x6/uL (4.20-6.10); RDW 15.8 % (11.5-14.5); WBC 13.3 10x3/uL (4.8-10.8)
[2018-09-24 23:16] LABS: APTT 36.4 SECONDS (22.8-39.4); INR 1.31 (0.85-1.17); PROTIME 15.7 SECONDS (11.6-15.0)
[2018-09-24 23:23] LABS: ALBUMIN 2.5 g/dL (3.4-5.0); ALKALINE PHOSPHATASE 70 U/L (46-116); ALT (SGPT) 9 U/L (10-68); BILIRUBIN - TOTAL 0.38 mg/dL (0.2-1.3); CALC OSMOLALITY 290 mosm/kg (275-300); CALCIUM 8.6 mg/dL (8.5-10.1); CHLORIDE - SERUM 94 mmol/L (98-107); CREATININE - SERUM 2.7 mg/dL (0.6-1.3); PROTEIN - SERUM 8.1 g/dL (6.4-8.2); SODIUM 134 mmol/L (136-145); UREA NITROGEN 56 mg/dL (7-18); eGFR NON AFRICAN AMERICAN 25 mL/min (90-120)
[2018-09-24 23:26] LABS: GLUCOSE 230 mg/dL (74-106)
[2018-09-24 23:34] LABS: CKMB 0.6 U/L (0.0-3.6); CREATINE KINASE 71 UL (21-232); MAGNESIUM - SERUM 2.8 mg/dL (1.8-2.4); THYROID STIMULATING HORMONE 1.41 uIU/mL (0.36-3.74); TROPONIN-I 0.033 ng/mL (0.000-0.060)
[2018-09-25] VITALS (8 sets, daily range): BP systolic 94–149; BP diastolic 38–76; Ht 167.6 cm; Wt 113.4 kg
--- NOTE | 2018-09-25 00:10 | NUR ---
ARRIVED ON FLOOR VIA STRETCHER. TRANSFERRED TO BED. CHRONIC MINA IN PLACE. IV RIGHT FA INFUSING NS AND LEVAQUIN PER ORDER. ORIENTED TO ROOM AND CALL LIGHT. FALL PRECAUTIONS PLACED. ASSESSMENT AND HISTORY PER FLOW SHEET.
[2018-09-25] MEDS ORDERED: B12 PO (01:58)
[2018-09-25] MEDS ORDERED: VITAMIN B-12500 MC1 PO (01:59)
[2018-09-25] MEDS ORDERED: DIFLUCAN200 MG PO (02:01)
[2018-09-25] MEDS ORDERED: LANTUS SOL100 UNIT/1 SC (02:12)
[2018-09-25] MEDS ORDERED: PRINIVIL20 MG PO (02:16)
[2018-09-25] MEDS ORDERED: MIRALAX17 GM PO (02:36)
[2018-09-25] MEDS ORDERED: ZOLOFT25 MG PO (02:38)
[2018-09-25] MEDS ORDERED: COLACE100 MG PO (02:49)
[2018-09-25] MEDS ORDERED: LASIX40 MG PO (02:52)
[2018-09-25] MEDS ORDERED: GLUCOPHAGE500 MG PO (02:54)
[2018-09-25] MEDS ORDERED: OXYBUTYNIN CHLOR5 MG PO (02:55)
[2018-09-25] MEDS ORDERED: GABAPENTIN100 MG PO (02:57)
--- NOTE | 2018-09-25 03:00 | NUR ---
I have reviewed this patient and I concur with the Shift Assessment completed by the Licensed Practical Nurse today this shift.
[2018-09-25] MEDS ORDERED: CATAPRES0.1 MG PO (03:01)
[2018-09-25] MEDS ORDERED: BENADRYL50 MG PO (03:03)
[2018-09-25] MEDS ORDERED: GUAIFENESI100 MG/5 M PO (03:05)
[2018-09-25 07:47] LABS: BASOPHILS 0.2 % (0-2); EOSINOPHILS 4.1 % (0-7); HEMATOCRIT 37.3 % (42.0-54.0); HEMOGLOBIN 11.8 g/dL (13.5-17.5); IMMATURE GRANULOCYTES 0.5 % (0-5); LYMPHOCYTES 15.5 % (15-50); MCH 26.6 pg (26.0-34.0); MCHC 31.6 g/dL (31.0-37.0); MEAN PLATELET VOLUME 10.1 fL (7.4-10.4); MONOCYTES 12.3 % (2-11); NEUTROPHILS 67.4 % (40-80); PLATELET COUNT 182 10x3/uL (130-400); RBC 4.44 10x6/uL (4.20-6.10); RDW 15.9 % (11.5-14.5)
[2018-09-25 08:08] LABS: WBC 9.7 10x3/uL (4.8-10.8)
[2018-09-25 08:19] LABS: ALBUMIN 2.4 g/dL (3.4-5.0); ANION GAP 9.9 mmol/L (8-16); BILIRUBIN - TOTAL 0.38 mg/dL (0.2-1.3); CALCIUM 8.6 mg/dL (8.5-10.1); CARBON DIOXIDE 32.7 mmol/L (21.0-32.0); CREATININE - SERUM 2.7 mg/dL (0.6-1.3); POTASSIUM - SERUM 3.6 mmol/L (3.5-5.1)
[2018-09-25 09:43] LABS: CKMB 0.6 U/L (0.0-3.6); CREATINE KINASE 81 UL (21-232); TROPONIN-I 0.028 ng/mL (0.000-0.060)
--- NOTE | 2018-09-25 10:12 | NUR ---
AWAKE WITH STIMULATION. HR 48. DR. LEW NOTIFIED OF PT. STATUS WITH NEW ORDERS NOTED. O2 5L N/C. PULSE OX 98%. NOTIFIED OF MRI QUWSTION AND STATED COULD WAIT UNTIL Thursday due to alert status. ENCOURAGED TO USE CALL LIGHT FOR ASSIT AND VERBALIZED UNDERSTANDING. TELEMETRY SHOWING CONTROLLED A- FIB 57
[2018-09-25 15:30] LABS: CKMB 0.8 U/L (0.0-3.6); CREATINE KINASE 77 UL (21-232); TROPONIN-I 0.021 ng/mL (0.000-0.060)
[2018-09-25 17:44] LABS: BASOPHILS 0.3 % (0-2); EOSINOPHILS 3.5 % (0-7); HEMATOCRIT 40.3 % (42.0-54.0); HEMOGLOBIN 12.6 g/dL (13.5-17.5); IMMATURE GRANULOCYTES 0.7 % (0-5); LYMPHOCYTES 15.4 % (15-50); MCH 26.6 pg (26.0-34.0); MCHC 31.3 g/dL (31.0-37.0); MEAN PLATELET VOLUME 10.7 fL (7.4-10.4); MONOCYTES 10.9 % (2-11); NEUTROPHILS 69.2 % (40-80); PLATELET COUNT 191 10x3/uL (130-400); RBC 4.74 10x6/uL (4.20-6.10); WBC 10.5 10x3/uL (4.8-10.8)
[2018-09-25 18:15] LABS: ANION GAP 18.3 mmol/L (8-16); CALCIUM 8.5 mg/dL (8.5-10.1); CARBON DIOXIDE 25.5 mmol/L (21.0-32.0); CREATININE - SERUM 2.5 mg/dL (0.6-1.3); POTASSIUM - SERUM 3.8 mmol/L (3.5-5.1)
--- NOTE | 2018-09-25 20:00 | NUR ---
RESTING IN BED RESP UNLABORE, LETHARGIC RESPONDS TO STERNAL RUB,NO VERBAL RESPONSE DIFFICULT TO GET TO FOLLOW COMANDS, TEL IN USE, IV INFUSING WITHOUT DIFFICULTY, WILL MONITOR, CALL LIGHT IN REACH
[2018-09-25 20:08] LABS: CKMB 0.7 U/L (0.0-3.6); CREATINE KINASE 68 UL (21-232)
[2018-09-25 20:17] LABS: TROPONIN-I < 0.017 ng/mL (0.000-0.060)
--- NOTE | 2018-09-25 21:30 | NUR ---
UNABLE TO AROUSE ENOUGH TO TAKE PM MEDS, WILL OPEN EYES TO PAINFULL STUMULI, RESP UNLABORED WILL CONTINUE TO MONITOR
[2018-09-26] VITALS: BP 114/61
--- NOTE | 2018-09-26 00:15 | NUR ---
NOTED TO BE AWAKE ANSWERS QUESTIONS APPROIATELY, DENIES PAIN OR NEEDS AT THIS TIME, CALL ARMIDA TURNER
[2018-09-26 04:00] VITALS: BP 133/62
--- NOTE | 2018-09-26 11:04 | NUR ---
ALERT AND ORIENTED AND REQUIRES ASSIST FEEDING. IVF INFUSING AT PRESRIBED RATE. TEMETRY CONTROLLED A- FIB. 79. DENIES ANY PAIN OR DISCOMFORT. MINA CATH PATENT WITH MING URINE. ENCOURAGED TO USE CALL LIGHT FOR ASSIST.
[2018-09-26 11:09] LABS: BASOPHILS 0.4 % (0-2); EOSINOPHILS 3.2 % (0-7); HEMATOCRIT 38.3 % (42.0-54.0); HEMOGLOBIN 11.8 g/dL (13.5-17.5); IMMATURE GRANULOCYTES 0.6 % (0-5); LYMPHOCYTES 13.9 % (15-50); MCH 26.6 pg (26.0-34.0); MCHC 30.8 g/dL (31.0-37.0); MCV 86.3 fL (80.0-100.0); MEAN PLATELET VOLUME 9.7 fL (7.4-10.4); MONOCYTES 8.1 % (2-11); NEUTROPHILS 73.8 % (40-80); PLATELET COUNT 192 10x3/uL (130-400); RBC 4.44 10x6/uL (4.20-6.10); RDW 15.9 % (11.5-14.5); WBC 8.3 10x3/uL (4.8-10.8)
[2018-09-26 11:31] LABS: ALBUMIN 2.4 g/dL (3.4-5.0); BILIRUBIN - TOTAL 0.3 mg/dL (0.2-1.3); CALCIUM 8.1 mg/dL (8.5-10.1); CARBON DIOXIDE 29.8 mmol/L (21.0-32.0); DIGOXIN 1.28 ng/mL (0.90-2.00); POTASSIUM - SERUM 3.8 mmol/L (3.5-5.1); PROTEIN - SERUM 7.4 g/dL (6.4-8.2)
[2018-09-26 13:10] VITALS: BP 124/63
[2018-09-26 16:31] VITALS: BP 177/63
[2018-09-26 20:00] VITALS: BP 184/77
--- NOTE | 2018-09-26 20:00 | NUR ---
ALERT RESTING IN BED, RESP UNLABORED, SEE SHIFT ASSESSMENT, CALL ARMIDA TURNER
[2018-09-27 04:00] VITALS: BP 177/81
[2018-09-27 04:56] LABS: BASOPHILS 0.3 % (0-2); EOSINOPHILS 3.4 % (0-7); HEMATOCRIT 37.3 % (42.0-54.0); HEMOGLOBIN 11.6 g/dL (13.5-17.5); IMMATURE GRANULOCYTES 0.5 % (0-5); LYMPHOCYTES 16.5 % (15-50); MCH 26.5 pg (26.0-34.0); MCHC 31.1 g/dL (31.0-37.0); MCV 85.2 fL (80.0-100.0); MEAN PLATELET VOLUME 10.4 fL (7.4-10.4); NEUTROPHILS 70.3 % (40-80); PLATELET COUNT 179 10x3/uL (130-400); RBC 4.38 10x6/uL (4.20-6.10); RDW 15.8 % (11.5-14.5); WBC 9.3 10x3/uL (4.8-10.8)
[2018-09-27 05:33] LABS: ALBUMIN 2.5 g/dL (3.4-5.0); ANION GAP 11.4 mmol/L (8-16); BILIRUBIN - TOTAL 0.38 mg/dL (0.2-1.3); CALCIUM 8.5 mg/dL (8.5-10.1); CARBON DIOXIDE 28.9 mmol/L (21.0-32.0); CREATININE - SERUM 1.5 mg/dL (0.6-1.3); POTASSIUM - SERUM 3.3 mmol/L (3.5-5.1); PROTEIN - SERUM 7.9 g/dL (6.4-8.2)
[2018-09-27 05:40] LABS: DIGOXIN 0.93 ng/mL (0.90-2.00)
[2018-09-27 09:31] VITALS: BP 181/83
[2018-09-27 18:57] VITALS: BP 212/91
[2018-09-27 20:00] VITALS: BP 204/82
[2018-09-28 04:00] VITALS: BP 194/91
[2018-09-28 04:33] LABS: BASOPHILS 0.5 % (0-2); EOSINOPHILS 1.7 % (0-7); HEMATOCRIT 38.1 % (42.0-54.0); HEMOGLOBIN 12.2 g/dL (13.5-17.5); IMMATURE GRANULOCYTES 0.5 % (0-5); LYMPHOCYTES 17.6 % (15-50); MCH 27.1 pg (26.0-34.0); MCV 84.7 fL (80.0-100.0); MEAN PLATELET VOLUME 10.4 fL (7.4-10.4); MONOCYTES 7.6 % (2-11); NEUTROPHILS 72.1 % (40-80); PLATELET COUNT 183 10x3/uL (130-400); RDW 15.4 % (11.5-14.5); WBC 10.2 10x3/uL (4.8-10.8)
[2018-09-28 04:44] LABS: ALBUMIN 2.6 g/dL (3.4-5.0); BILIRUBIN - TOTAL 0.26 mg/dL (0.2-1.3); CALCIUM 8.7 mg/dL (8.5-10.1); CARBON DIOXIDE 25.6 mmol/L (21.0-32.0); CREATININE - SERUM 1.2 mg/dL (0.6-1.3); POTASSIUM - SERUM 3.6 mmol/L (3.5-5.1); PROTEIN - SERUM 8.1 g/dL (6.4-8.2)
--- NOTE | 2018-09-28 07:34 | NUR ---
PT DISORIENTED TO TIME. BREATH SOUNDS CLEAR BILAT. IV TO RIGHT FOREARM, PATENT, DRESSING CLEAN DRY AND INTACT. MINA IN PLACE, URINE DARK YELLOW AND CLOUDY. +2 EDEMA TO BLE. FEET CONTRACTED. TELEMETRY IN PLACE. PT REPORTING PAIN OF 8/10 TO LOWER BACK. BED LOW, CALL LIGHT IN REACH. NO OTHER NEEDS AT THIS TIME.
--- NOTE | 2018-09-28 08:48 | NUR ---
0445)REC'D. CHGE OF SHIFT INCONT. LGE SOFT BM.2+ EDEMA LOWER EXT WITH REDNESS LEGS BILAT.SCROTUM RED SWOLLEN WELL PERINEAL AREA.NO SKINBREAKAGE NOTED.BUTT CREAM APPLIED MINA DRAINING DK MING COLORED URINESOME CONFUSION AND DISORIENTATION OBSERVED WILL CONTINUE TO MONITOR FOR ANY CHGES AND FOLLOW CURRENT PLAN OF CARE.
[2018-09-28 09:36] VITALS: BP 152/83
--- NOTE | 2018-09-28 11:55 | NUR ---
NUTRITION F/U NO INTAKE BREAKFAST TODAY. WHEN ASKED IF HE WAS READY FOR LUNCH, PT REPLIED "NOPE." WILL ENCOURAGE PO WHEN LUNCH ARRIVES. RD FOLLOWING
--- NOTE | 2018-09-28 13:53 | MORECARE ---
CASE MANAGEMENT DISCHARGE SUMMARY PATIENT: GOMEZ SANTO UNIT: [id number] ADM DATE: 09/24/18 AGE: 73 : 45 SEX: M ROOM/BED: D.2233 AUTHOR: RUBEN ANDREA PHYSICIAN: REFERRING PHYSICIAN: CHICO MARSH MD DATE OF SERVICE: 09/28/18 Discharge Plan Patient Name: GOMEZ SANTO [facility] [facility] 1945 Planned Disposition: Nursing Facility [facility] Cert Anticipated Discharge Date: Discharge Date: Expected LOS: Initial Reviewer: [email or web address] Initial Review Date: 09/25/2018 Generated: 09/28/18 2:53 pm Comments DCP- Discharge Planning Updated by [email or web address]: Lacey Prescott on 09/28/18 12:[address] Patient Name: GOMEZ SANTO Admission Status: ER Accout number: [id number] Admission Date: 09-24-2018 : 1945 Admission Diagnosis:SHORTNESS OF BREATH Attending: CHICO MARSH Current LOS: 4 Anticipated DC Date: Planned Disposition: Nursing Facility [facility] Cert Primary Insurance: MEDICARE A & B Discharge Planning Comments: CM met with patient to discuss discharge planning, he is alone in the room. He lives at [facility] where he plans on returning. He states he can take the wheelchair van back. CM will need to check on that with the facility. On his last admission he returned via ambulance. CM will continue to follow and assist with discharge planning/needs. Crane Operator Cab: Lacey Javonerwin Patient Name: GOMEZ SANTO Page [id number] at 1353 All edits/amendments must be made on the electronic document DICTATION DATE: 09/28/18 1352 PROGRAM ARRANGER: LOREN 09/28/18 1352 RPT#: [id number] DC DATE: STATUS: ADM IN [facility] [address] [place] [address] END OF REPORT
[2018-09-28 14:16] VITALS: BP 171/90
--- NOTE | 2018-09-28 15:20 | NUR ---
MINA CHANGED PER ORDERS. BED CHANGED AND PT CLEANED UP. FAMILY AT BEDSIDE.
[2018-09-28 18:04] VITALS: BP 121/87
[2018-09-28 18:25] LABS: APPEARANCE CLOUDY (CLEAR); BILIRUBIN NEGATIVE (NEGATIVE); COLOR YELLOW (YELLOW); GLUCOSE 1000 mg/dL (NEGATIVE); KETONE SMALL mg/dL (NEGATIVE); NITRITE NEGATIVE (NEGATIVE); PROTEIN 1+ mg/dL (NEGATIVE); UROBILINOGEN NORMAL (NORMAL)
[2018-09-28 18:26] LABS: WHITE CELLS - URINE >50 /hpf (0-5)
[2018-09-28 18:27] LABS: BACTERIA MODERATE /hpf (NONE SEEN); RED CELLS - URINE 0-5 /hpf (0-5)
[2018-09-28 20:00] VITALS: BP 154/84
[2018-09-29] VITALS (7 sets, daily range): BP systolic 110–203; BP diastolic 77–101
--- NOTE | 2018-09-29 04:42 | NUR ---
I have reviewed this patient and I concur with the Shift Assessment completed by the Licensed Practical Nurse today this shift.
[2018-09-29 06:11] LABS: BASOPHILS 0.2 % (0-2); HEMATOCRIT 39.2 % (42.0-54.0); HEMOGLOBIN 12.3 g/dL (13.5-17.5); IMMATURE GRANULOCYTES 0.5 % (0-5); MCH 26.2 pg (26.0-34.0); MCHC 31.4 g/dL (31.0-37.0); MCV 83.4 fL (80.0-100.0); MEAN PLATELET VOLUME 10.6 fL (7.4-10.4); MONOCYTES 7.8 % (2-11); NEUTROPHILS 78.5 % (40-80); RDW 15.7 % (11.5-14.5)
[2018-09-29 06:22] LABS: PLATELET COUNT 221 10x3/uL (130-400)
[2018-09-29 06:33] LABS: ALBUMIN 2.6 g/dL (3.4-5.0); ANION GAP 13.9 mmol/L (8-16); BILIRUBIN - TOTAL 0.51 mg/dL (0.2-1.3); CARBON DIOXIDE 24.5 mmol/L (21.0-32.0); CREATININE - SERUM 1.2 mg/dL (0.6-1.3); POTASSIUM - SERUM 3.4 mmol/L (3.5-5.1); PROTEIN - SERUM 8.2 g/dL (6.4-8.2)
--- NOTE | 2018-09-29 09:27 | NUR ---
PATIENT IN BED VERY [place], SKIN W/D TO TOUCH, COLOR PINK, RESP. REGULAR AND EVEN AT 20. ABDOMEN SOFT WITH BS + IN ALL 4 QUADS. SALINE LOCK INTACT TO RIGHT FOREARM, NO SWELLING OR REDNESS NOTED. MINA INTACT AND DRAINING MING URINE, TELEMETRY INTACT. PATIENT DENIES ANY C/O PAIN WHEN ASKED. C/L WITHIN REACH AND SR'S UP X'S 2.
--- NOTE | 2018-09-29 15:19 | NUR ---
PATIENT GIVEN COMPLETE BED BATH AND LINEN CHANGE. SCROTUM VERY RED DR. NEWMANAGED AND R/C RECEIVED NEW ORDER FOR NYSTATIN POWDER TO SCROTUM BID, PHARMACY NOTIFIED.
--- NOTE | 2018-09-29 18:26 | NUR ---
I have reviewed this patient and I concur with the Shift Assessment completed by the Licensed Practical Nurse today this shift.
--- NOTE | 2018-09-29 20:00 | NUR ---
RESTING IN BED C/O PAIN TO BACK TYLENOL GIVEN, REPORTS HELPED SOME, SEE SHIFT ASSESSMENT CALL LIGHT IN REACH
[2018-09-30 04:00] VITALS: BP 176/88
[2018-09-30 04:55] LABS: BASOPHILS 0.3 % (0-2); EOSINOPHILS 2.7 % (0-7); HEMATOCRIT 39.5 % (42.0-54.0); IMMATURE GRANULOCYTES 0.6 % (0-5); LYMPHOCYTES 14.3 % (15-50); MCHC 32.9 g/dL (31.0-37.0); MCV 82.1 fL (80.0-100.0); MEAN PLATELET VOLUME 9.8 fL (7.4-10.4); MONOCYTES 8.1 % (2-11); PLATELET COUNT 188 10x3/uL (130-400); RBC 4.81 10x6/uL (4.20-6.10); RDW 15.7 % (11.5-14.5)
[2018-09-30 05:00] LABS: WBC 8.6 10x3/uL (4.8-10.8)
[2018-09-30 05:11] LABS: ALBUMIN 2.7 g/dL (3.4-5.0); ANION GAP 15.5 mmol/L (8-16); BILIRUBIN - TOTAL 0.47 mg/dL (0.2-1.3); CALCIUM 8.6 mg/dL (8.5-10.1); CARBON DIOXIDE 23.5 mmol/L (21.0-32.0); CREATININE - SERUM 1.2 mg/dL (0.6-1.3); PROTEIN - SERUM 8.1 g/dL (6.4-8.2)
[2018-09-30 10:11] VITALS: BP 183/87
[2018-09-30 13:37] VITALS: BP 181/93
[2018-09-30 17:34] VITALS: BP 173/77
[2018-09-30 20:00] VITALS: BP 178/81
--- NOTE | 2018-09-30 20:00 | NUR ---
RESTING IN BED NO APPARENT DISTRESS CALL LIGHT IN REACH SEE SHIFT ASSESSMENT
[2018-10-01] VITALS (7 sets, daily range): BP systolic 142–186; BP diastolic 69–93
[2018-10-01 05:09] LABS: BASOPHILS 0.6 % (0-2); EOSINOPHILS 4.3 % (0-7); HEMATOCRIT 38.5 % (42.0-54.0); HEMOGLOBIN 12.3 g/dL (13.5-17.5); IMMATURE GRANULOCYTES 0.7 % (0-5); LYMPHOCYTES 14.5 % (15-50); MCH 26.3 pg (26.0-34.0); MCHC 31.9 g/dL (31.0-37.0); MCV 82.3 fL (80.0-100.0); MEAN PLATELET VOLUME 10.2 fL (7.4-10.4); MONOCYTES 6.7 % (2-11); NEUTROPHILS 73.2 % (40-80); PLATELET COUNT 198 10x3/uL (130-400); RBC 4.68 10x6/uL (4.20-6.10); RDW 16.3 % (11.5-14.5); WBC 10.1 10x3/uL (4.8-10.8)
[2018-10-01 05:31] LABS: ALBUMIN 2.6 g/dL (3.4-5.0); ALKALINE PHOSPHATASE 61 U/L (46-116); ALT (SGPT) 11 U/L (10-68); BILIRUBIN - TOTAL 0.44 mg/dL (0.2-1.3); CALC OSMOLALITY 283 mosm/kg (275-300); CALCIUM 8.5 mg/dL (8.5-10.1); CARBON DIOXIDE 21.3 mmol/L (21.0-32.0); CHLORIDE - SERUM 105 mmol/L (98-107); GLUCOSE 227 mg/dL (74-106); POTASSIUM - SERUM 3.3 mmol/L (3.5-5.1); SODIUM 140 mmol/L (136-145); UREA NITROGEN 8 mg/dL (7-18); eGFR NON AFRICAN AMERICAN 78 mL/min (90-120)
[2018-10-02 04:00] VITALS: BP 178/89
[2018-10-02 06:28] LABS: ALBUMIN 2.5 g/dL (3.4-5.0); ALKALINE PHOSPHATASE 58 U/L (46-116); ALT (SGPT) 11 U/L (10-68); BILIRUBIN - TOTAL 0.41 mg/dL (0.2-1.3); CALC OSMOLALITY 281 mosm/kg (275-300); CALCIUM 8.6 mg/dL (8.5-10.1); CARBON DIOXIDE 21.4 mmol/L (21.0-32.0); CHLORIDE - SERUM 106 mmol/L (98-107); DIGOXIN 0.78 ng/mL (0.90-2.00); GLUCOSE 197 mg/dL (74-106); POTASSIUM - SERUM 3.5 mmol/L (3.5-5.1); PROTEIN - SERUM 7.8 g/dL (6.4-8.2); SODIUM 140 mmol/L (136-145); UREA NITROGEN 8 mg/dL (7-18); eGFR NON AFRICAN AMERICAN 78 mL/min (90-120)
[2018-10-02 06:30] LABS: BASOPHILS 0.6 % (0-2); EOSINOPHILS 6.1 % (0-7); HEMATOCRIT 38.5 % (42.0-54.0); HEMOGLOBIN 12.4 g/dL (13.5-17.5); IMMATURE GRANULOCYTES 0.5 % (0-5); LYMPHOCYTES 16.8 % (15-50); MCH 26.9 pg (26.0-34.0); MCHC 32.2 g/dL (31.0-37.0); MCV 83.5 fL (80.0-100.0); MONOCYTES 6.8 % (2-11); NEUTROPHILS 69.2 % (40-80); PLATELET COUNT 194 10x3/uL (130-400); RBC 4.61 10x6/uL (4.20-6.10); RDW 16.8 % (11.5-14.5); WBC 9.7 10x3/uL (4.8-10.8)
[2018-10-02 09:04] VITALS: BP 172/76
--- NOTE | 2018-10-02 10:46 | NUR ---
ALERT AND ORIENTED TO SELF AND SURROUNDING. MINA CATH INTACT WITH DARK MING URINE NOTED. ENCOURAGED TO DRINK MORE FLUIDS. TELEMETRY INTACT WITH CONTROLLED AF 90 NOTED. ENCOURAGED TO USE CALL LIGHT FOR ASSIST.DENIES ANY PAIN OR DISCOMFORT AT THIS TIME.
[2018-10-02 14:14] VITALS: BP 141/81
[2018-10-02 14:32] VITALS: BP 141/81
[2018-10-02 17:53] VITALS: BP 108/83
[2018-10-02 20:00] VITALS: BP 167/62
--- NOTE | 2018-10-02 21:43 | NUR ---
PT ALERT & ORIENTED. PULLED PT UP IN BED AND REPOSITIONED. GAVE SCHEDULED MEDS. ASSESSMENT COMPLET PER FLOW-SHEET. NO OTHER NEEDS. WILL REASSESS AND CONTINUE TO MONITOR.
[2018-10-03 04:00] VITALS: BP 115/73
[2018-10-03 09:45] VITALS: BP 150/79
--- NOTE | 2018-10-03 10:42 | NUR ---
AWAKE WITH LIMITED COGNITION. TELEMETRY INTACT. CONTINUES CONTACT ISOLATION FOR MRSA URINE IN MINA WITH MING URINE NOTED. ENCOURAGED FLUID AND PO INTAKE. ABX INFUSING IN LT. F/A WITH NO S/S OF INFECTION/INFILTRATION. ENCOURAGED TO USE CALL LIGHT FOR ASSIST.
[2018-10-03 17:35] VITALS: BP 154/48
--- NOTE | 2018-10-03 18:40 | NUR ---
ATTEMPTED TO ASSIST PT WITH MEALS WITH PATIENT REFUSING TO EAT WITH SUPPLEMENTAL MEALS OFFERED AND REFUSED. TURNED AND REPOSITIONED FOR COMFORT WITH PERICARE DONE FOR INCONTINENCE OF BM WITH BARRIER CREAM APPLIED. ENCOURAGED TO USE CALL LIGHT FOR ASSISST.
[2018-10-03 20:00] VITALS: BP 149/69
--- NOTE | 2018-10-03 22:30 | NUR ---
PT ALERT & ORIENTED. GAVE SCHEDULED MEDS. PT C/O PAIN 01/19. GAVE NORCO-10 PO. PULLED UP AND REPOSITIONED. NO OTHER NEEDS. ASSESSMENT COMPLETE PER FLOW-SHEET. WILL CONTINUE TO MONITOR.
[2018-10-04 04:00] VITALS: BP 153/77
--- NOTE | 2018-10-04 08:11 | NUR ---
AWAKE AND ALERT. ORIENTED X3. NO C/O THIS AM. LUNGS ARE CLEAR BILATERALLY, NO COUGH NOTED. SKIN IS INTACT WITHOUT REDNESS. IV TO LEFT FOREARM IS PATENT WITHOUT REDNESS AT INSERTION SITE. MINA PATENT WITH CLEAR YELLOW URINE. DENIES NEEDS. PATIENT APPEARED TO BE MASTURBATING DURING ASSESSMENT. DENIES NEEDS.
[2018-10-04 08:55] VITALS: BP 173/91
--- NOTE | 2018-10-04 09:00 | NUR ---
ADAMANTLY REFUSED LOVENOX THIS AM. TOOK PO MEDS WITHOUT DIFFICULTY. WILL MONITOR.
--- NOTE | 2018-10-04 12:33 | NUR ---
FSBS 247. GIVEN 4 UNIT REGULAR SUBQ PER SS. REQUESTED AND GIVNE ONE HYDORCODONE PO FOR C/O LEFT FOOT PAIN LEVEL 9. WILL MONITOR. REFUSED MOST OF LUNCH TRAY. ATE ABOUT HALF OF BANANA.
[2018-10-04 13:00] VITALS: BP 142/59
--- NOTE | 2018-10-04 14:22 | NUR ---
NUTRITION F//U CHART REVIEWED, PT VISIT. REMAINS IN ISOLATION. PROVIDED WITH GLUCERNA SHAKE PER NURSING REQUEST. PT SEEMED TO ENJOY AND WAS STILL CONSUMING WHEN RD LEFT ROOM. ADDED TO MEALS. RD FOLLOWING
--- NOTE | 2018-10-04 15:20 | NUR ---
GIVEN MEDS WITHOUT DIFFICULTY. DENIES NEEDS.
[2018-10-04 16:00] VITALS: BP 139/55
--- NOTE | 2018-10-04 18:33 | NUR ---
EMETERIO AT BEDSIDE. PATIENT REFUSED TO EAT ANY OF MEAL OR DRINK HIS GLUCERNA. NO CHANGES NOTED. DENIES NEEDS.
[2018-10-04 20:00] VITALS: BP 182/73
--- NOTE | 2018-10-04 20:00 | NUR ---
RESTING IN BED RESP UNLABORED, NO APPARENT DISTRESS CALL LIGHT IN REACH, SEE SHIFT ASSESSMENT
[2018-10-05 04:00] VITALS: BP 109/92
--- NOTE | 2018-10-05 07:51 | NUR ---
AWAKE AND ALERT. ORIENTED TO SELF ONLY. ATTEMPTS TO REORIENT WITHOUT SUCCESS. LLUNGS ARE CLEAR BILATERALLY, NO COUGH NOTED. SKIN IS INTACT WITHOUT REDNESS. SL TO LEFT FOREARM IS PATENT WITHOUT REDNESS AT INSERTION SITE. MINA PATENT WITH CLEAR YELLOW URINE. C/O PAIN TO LEFT FOOT. WILL GET PRN. DENIES NEEDS.
[2018-10-05 08:52] VITALS: BP 183/65
--- NOTE | 2018-10-05 09:00 | NUR ---
IV IS LEAKING. PATIENT DOESN'T WANT A NEW ONE. STATED ADAMANTLY HE DOESN'T WANT A NEW ONE. WILL MONITOR.
--- NOTE | 2018-10-05 10:30 | NUR ---
DR. MARSH HERE INFORMED OF PATIENTS STATEMENTS. NEW ORDERS RECEIVED.
[2018-10-05] MEDS ORDERED: DIFLUCAN100 MG PO (11:00)
[2018-10-05] MEDS ORDERED: LISINOPRIL10 MG PO (11:01)
[2018-10-05] MEDS ORDERED: Bactroban ointment NASAL (11:03)
[2018-10-05] MEDS ORDERED: VIBRAMYCIN 100100 MG PO (11:09)
[2018-10-05] MEDS ORDERED: CARDIZEM CD300 MG PO (11:16)
--- NOTE | 2018-10-05 12:00 | NUR ---
FSBS 245. GIVEN 4 UNITS REGUALR SUBQ PER SS. SPOKE WITH DAUGHTER ABOUT D/C ORDERS. ALL QUESTIONS ANSWERED.
--- NOTE | 2018-10-05 13:22 | MORECARE ---
CASE MANAGEMENT DISCHARGE SUMMARY PATIENT: GOMEZ SANTO UNIT: [id number] ADM DATE: 09/24/18 AGE: 73 : 45 SEX: M ROOM/BED: D.2233 AUTHOR: RUBEN ANDREA PHYSICIAN: REFERRING PHYSICIAN: CHICO MARSH MD DATE OF SERVICE: 10/05/18 Discharge Plan Patient Name: GOMEZ SANTO [facility] [facility] 1945 Planned Disposition: Nursing Facility [facility] Cert Anticipated Discharge Date: Discharge Date: Expected LOS: Initial Reviewer: [email or web address] Initial Review Date: 09/25/2018 Generated: 10/05/18 2:22 pm Comments DCP- Discharge Planning Updated by [email or web address]: Lacey Prescott on 09/28/18 12:[address] Patient Name: GOMEZ SANTO Admission Status: ER Accout number: [id number] Admission Date: 09-24-2018 : 1945 Admission Diagnosis:SHORTNESS OF BREATH Attending: CHICO MARSH Current LOS: 4 Anticipated DC Date: Planned Disposition: Nursing Facility [facility] Cert Primary Insurance: MEDICARE A & B Discharge Planning Comments: CM met with patient to discuss discharge planning, he is alone in the room. He lives at [facility] where he plans on returning. He states he can take the wheelchair van back. CM will need to check on that with the facility. On his last admission he returned via ambulance. CM will continue to follow and assist with discharge planning/needs. Research Psychologist: Lacey Prescott External Providers External Provider: [facility] Next Contact Date: Service Request Date: Service Type: Resolution: Reviewer: Comments: Last DP export: 09/28/18 12:53 p Patient Name: GOMEZ SANTO Page [id number] at 1322 All edits/amendments must be made on the electronic document DICTATION DATE: 10/05/18 1322 INSTRUCTIONAL SUPPORT ASSISTANT: LOREN 10/05/18 1322 RPT#: [id number] DC DATE: STATUS: ADM IN [address] [place] [address] END OF REPORT
--- NOTE | 2018-10-05 13:45 | MORECARE ---
CASE MANAGEMENT DISCHARGE SUMMARY PATIENT: GOMEZ GUEVARA UNIT: [id number] ADM DATE: 09/24/18 AGE: 73 : 45 SEX: M ROOM/BED: D.2233 AUTHOR: ZULLY,DOC PHYSICIAN: REFERRING PHYSICIAN: CHIOC MARSH MD DATE OF SERVICE: 10/05/18 Discharge Plan Patient Name: GOMEZ GUEVARA [facility]:[place] : 1945 Planned Disposition: Nursing Facility [facility] Cert Anticipated Discharge Date: Discharge Date: Expected LOS: Initial Reviewer: [email or web address] Initial Review Date: 09/25/2018 Generated: 10/05/18 2:45 pm Comments DCP- Discharge Planning Updated by [email or web address]: Lacey Prescott on 10/05/18 12:[address] Received order for discharge. I called and spoke to Shereen at [employer], she states she will notify DON. I also spoke with Jazlyn in business office. She states the patient will come back to a skilled bed and will need to back via EMS [place]. I called patient's daughter (Radha Guevara) and informed he will be going back to [facility] today, she agrees with discharge. media coordinator informed. I did inform [employer] that he is in contact isolation and made note of it on Cover sheet. CM will continue to follow and assist with discharge planning/needs. DCP- Discharge Planning Updated by [email or web address]: Lacey Prescott on 09/28/18 12:[address] Patient Name: GOMEZ GUEVARA Admission Status: ER Accout number: [id number] Admission Date: 09-24-2018 : 1945 Admission Diagnosis:SHORTNESS OF BREATH Attending: CHICO MARSH Current LOS: 4 Anticipated DC Date: Planned Disposition: Nursing Facility [facility] Cert Primary Insurance: MEDICARE A & B Discharge Planning Comments: CM met with patient to discuss discharge planning, he is alone in the room. [facility]. He states he can take the wheelchair van back. CM will need to check on that with the facility. On his last admission he returned via ambulance. CM will continue to follow and assist with discharge planning/needs. Facilities Manager: Lacey Prescott Coverage Notice Reviewer: [email or web address] - Lacey Prescott Notice Issued Date-Time: 10/05/2018 13:29 Notice Type: IM Discharge Notice Notice Delivered To: Patient Relationship to Patient: Self Corporate Learning Consultant Name: Delivery Method: HAND - Hand Delivered Wilma Days: Prior Verbal Notification: Recipient Understood Notice: Recipient Signature: Med Rec Note Co-signed by Attending: Coverage Notice Comment: EXPLAINED, IMM, HE STATES HE IS READY TO GO HOME, STATES UNABLE TO SIGN. COPY LEFT WITH PATIENT. Last DP export: 10/05/18 12:22 p Patient Name: GOMEZ GUEVARA Page [id number] at 1345 All edits/amendments must be made on the electronic document DICTATION DATE: 10/05/18 1344 PAINT LABORATORY TECHNICIAN: LOREN 10/05/18 1344 RPT#: [id number] DC DATE: STATUS: ADM IN [facility] [address] [place] [address] END OF REPORT
[2018-10-05 13:49] VITALS: BP 108/57
--- NOTE | 2018-10-05 14:35 | NUR ---
REPORT CALLED TO ALF WALKER RN AT [facility]. ALL QUESTIONS ANSWERED.
[2018-10-05 16:39] VITALS: BP 130/64
--- NOTE | 2018-10-05 17:37 | NUR ---
DISCHARGED TO [facility] VIA AMBULANCE. FAMILY AWARE OF TRANSFER. ALL BELONGINGS WITH PATIENT.
--- NOTE | 2018-10-07 10:22 | MORECARE ---
CASE MANAGEMENT DISCHARGE SUMMARY PATIENT: GOMEZ GUEVARA UNIT: [id number] ADM DATE: 09/24/18 AGE: 73 : 45 SEX: M ROOM/BED: D.2233 AUTHOR: ZULLY,DOC PHYSICIAN: REFERRING PHYSICIAN: CHICO MARSH MD DATE OF SERVICE: 10/07/18 Discharge Plan Patient Name: GOMEZ GUEVARA Facility: [facility]:[place] : 1945 Planned Disposition: Nursing Facility [facility] Cert Anticipated Discharge Date: Discharge Date: 10/05/2018 Expected LOS: 0 Initial Reviewer: [email or web address] Initial Review Date: 09/25/2018 Generated: 10/07/18 11:22 am Comments DCP- Discharge Planning Updated by [email or web address]: Lacey Prescott on 10/05/18 12:[address] Received order for discharge. I called and spoke to Shereen at [facility], she states she will notify DON. I also spoke with Jazlyn in business office. She states the patient will come back to a skilled bed and will need to back via EMS [facility]. I called patient's daughter (Radha Guevara) and informed he will be going back to [facility] today, she agrees with discharge. product safety coordinator informed. I did inform [facility] that he is in contact isolation and made note of it on Cover sheet. CM will continue to follow and assist with discharge planning/needs. DCP- Discharge Planning Updated by [email or web address]: Lacey Prescott on 09/28/18 12:[address] Patient Name: GOMEZ GUEVARA Admission Status: ER Accout number: [id number] Admission Date: 09-24-2018 : 1945 Admission Diagnosis:SHORTNESS OF BREATH Attending: CHICO MARSH Current LOS: 4 Anticipated DC Date: Planned Disposition: Nursing Facility [facility] Cert Primary Insurance: MEDICARE A & B Discharge Planning Comments: CM met with patient to discuss discharge planning, he is alone in the room. [facility]. He states he can take the wheelchair van back. CM will need to check on that with the facility. On his last admission he returned via ambulance. CM will continue to follow and assist with discharge planning/needs. Mica Paster: Lacey Prescott Coverage Notice Reviewer: [email or web address] - Lacey Genie Notice Issued Date-Time: 10/05/2018 13:29 Notice Type: IM Discharge Notice Notice Delivered To: Patient Relationship to Patient: Self Contracts Director Name: Delivery Method: HAND - Hand Delivered Wilma Days: Prior Verbal Notification: Recipient Understood Notice: Recipient Signature: Med Rec Note Co-signed by Attending: Coverage Notice Comment: EXPLAINED, IMM, HE STATES HE IS READY TO GO HOME, STATES UNABLE TO SIGN. COPY LEFT WITH PATIENT. Last DP export: 10/05/18 12:45 p Patient Name: GOMEZ GUEVARA Page 80125 at 1022 All edits/amendments must be made on the electronic document DICTATION DATE: 10/07/18 1021 CLIP RIVETER: LOREN 10/07/18 1021 RPT#: [id number] DC DATE:10/05/18 STATUS: DIS IN [facility] [address] [place] [address] END OF REPORT
== END 2018-10-05 17:42 | DRG 698 ==
LOC: D.ER 22:27 → D.EDHOLD 23:32 → D.MS 23:32
PROVIDERS: Family Medicine; ADMIT Family Medicine; ATTEND Family Medicine
DX: T83.511A Infection and inflammatory reaction due to indwelling urethral catheter, initial encounter (principal); N18.6 End stage renal disease; R40.2123 Coma scale, eyes open, to pain, at hospital admission; R40.2213 Coma scale, best verbal response, none, at hospital admission; I12.0 Hypertensive chronic kidney disease with stage 5 chronic kidney disease or end stage renal disease; N17.9 Acute kidney failure, unspecified; I69.354 Hemiplegia and hemiparesis following cerebral infarction affecting left non-dominant side; R41.82 Altered mental status, unspecified; N39.0 Urinary tract infection, site not specified; N18.9 Chronic kidney disease, unspecified; E11.22 Type 2 diabetes mellitus with diabetic chronic kidney disease; I48.91 Unspecified atrial fibrillation; I25.10 Atherosclerotic heart disease of native coronary artery without angina pectoris; T46.0X5A Adverse effect of cardiac-stimulant glycosides and drugs of similar action, initial encounter; E87.6 Hypokalemia; R40.2353 Coma scale, best motor response, localizes pain, at hospital admission

== ENCOUNTER → 2019-01-12 18:00 | Outpatient (CLI) | payer MEDICARE ==
[2018-09-25 11:07] VITALS: BMI 40.3
[~2019-01-12 18:00] MED LIST changes: +B12 PO; +BENADRYL50 MG PO; +Bactroban ointment NASAL; +CARDIZEM CD300 MG PO; +CATAPRES0.1 MG PO; +COLACE100 MG PO; +DIFLUCAN200 MG PO; +GABAPENTIN100 MG PO; +GUAIFENESI100 MG/5 M PO; +LANTUS SOL100 UNIT/1 SC; +LASIX40 MG PO; +LISINOPRIL10 MG PO; +OXYBUTYNIN CHLOR5 MG PO; +PRINIVIL20 MG PO; +VIBRAMYCIN 100100 MG PO; +VITAMIN B-12500 MC1 PO; +ZOLOFT25 MG PO
[2019-01-13 00:46] LABS: CALC OSMOLALITY 287 mosm/kg (275-300); CALCIUM 8.7 mg/dL (8.5-10.1); CARBON DIOXIDE 33.7 mmol/L (21.0-32.0); CHLORIDE - SERUM 101 mmol/L (98-107); GLUCOSE 224 mg/dL (74-106); POTASSIUM - SERUM 4.2 mmol/L (3.5-5.1); SODIUM 139 mmol/L (136-145); TOBRAMYCIN - TROUGH 2.4 ug/mL (0.5-2.0); UREA NITROGEN 20 mg/dL (7-18); eGFR NON AFRICAN AMERICAN 78 mL/min (90-120)
== END | disposition home or self-care (01) ==
LOC: D.LABREF 18:00
PROVIDERS: ATTEND Family Medicine
DX: N18.6 End stage renal disease (principal); Z99.2 Dependence on renal dialysis

== ENCOUNTER → 2019-03-10 11:37 | Outpatient (CLI) | payer MEDICARE ==
[2018-09-25 11:07] VITALS: BMI 40.3
[2019-03-10 12:03] LABS: ALBUMIN 3.1 g/dL (3.4-5.0); ANION GAP 10.4 mmol/L (8-16); BILIRUBIN - TOTAL 0.24 mg/dL (0.2-1.3); CALCIUM 9.1 mg/dL (8.5-10.1); CARBON DIOXIDE 32.6 mmol/L (21.0-32.0); CREATININE - SERUM 1.6 mg/dL (0.6-1.3); PROTEIN - SERUM 7.7 g/dL (6.4-8.2); TOBRAMYCIN - TROUGH 3.5 ug/mL (0.5-2.0)
== END | disposition home or self-care (01) ==
LOC: D.LABREF 11:37
PROVIDERS: ATTEND Family Medicine
DX: N39.0 Urinary tract infection, site not specified (principal)

== ENCOUNTER → 2019-03-13 19:43 | Outpatient (CLI) | payer MEDICARE ==
[2018-09-25 11:07] VITALS: BMI 40.3
[2019-03-13 20:43] LABS: ANION GAP 10.9 mmol/L (8-16); BILIRUBIN - TOTAL 0.36 mg/dL (0.2-1.3); CALCIUM 9.2 mg/dL (8.5-10.1); CARBON DIOXIDE 33.8 mmol/L (21.0-32.0); CREATININE - SERUM 1.3 mg/dL (0.6-1.3); POTASSIUM - SERUM 3.7 mmol/L (3.5-5.1); PROTEIN - SERUM 7.6 g/dL (6.4-8.2)
== END ==
LOC: D.LABREF 19:43
PROVIDERS: ATTEND Family Medicine
DX: Z00.00 Encounter for general adult medical examination without abnormal findings (principal)

== ENCOUNTER → 2019-06-24 20:00 | Outpatient (CLI) | payer MEDICARE ==
[2018-09-25 11:07] VITALS: BMI 40.3
[2019-06-24 21:19] LABS: BASOPHILS 0.2 % (0-2); EOSINOPHILS 11.9 % (0-7); HEMOGLOBIN 12.8 g/dL (13.5-17.5); IMMATURE GRANULOCYTES 0.6 % (0-5); LYMPHOCYTES 19.7 % (15-50); MCH 27.9 pg (26.0-34.0); MCHC 31.2 g/dL (31.0-37.0); MCV 89.3 fL (80.0-100.0); MEAN PLATELET VOLUME 10.9 fL (7.4-10.4); MONOCYTES 9.8 % (2-11); NEUTROPHILS 57.8 % (40-80); PLATELET COUNT 186 10x3/uL (130-400); RBC 4.59 10x6/uL (4.20-6.10); RDW 14.8 % (11.5-14.5); WBC 8.5 10x3/uL (4.8-10.8)
[2019-06-24 21:30] LABS: APPEARANCE HAZY (CLEAR); BILIRUBIN NEGATIVE (NEGATIVE); COLOR YELLOW (YELLOW); GLUCOSE NEGATIVE (NEGATIVE); KETONE NEGATIVE (NEGATIVE); NITRITE POSITIVE (NEGATIVE); PROTEIN TRACE mg/dL (NEGATIVE); UROBILINOGEN NORMAL (NORMAL)
[2019-06-24 21:31] LABS: BACTERIA MANY /hpf (NEGATIVE); RED CELLS - URINE 0-5 /hpf (0-5); WHITE CELLS - URINE >50 /hpf (NEGATIVE)
[2019-06-24 21:32] LABS: ANION GAP 5.1 mmol/L (8-16); BILIRUBIN - TOTAL 0.41 mg/dL (0.2-1.3); CALCIUM 9.7 mg/dL (8.5-10.1); CARBON DIOXIDE 39.4 mmol/L (21.0-32.0); CREATININE - SERUM 1.9 mg/dL (0.6-1.3); POTASSIUM - SERUM 3.5 mmol/L (3.5-5.1); PROTEIN - SERUM 7.2 g/dL (6.4-8.2); YEAST >1+ /hpf (NONE SEEN)
== END | disposition home or self-care (01) ==
LOC: D.LABREF 20:00
PROVIDERS: ATTEND Family Medicine
DX: R53.83 Other fatigue (principal); R41.0 Disorientation, unspecified

== ENCOUNTER → 2019-07-01 14:40 | Outpatient (CLI) | payer MEDICARE ==
[2018-09-25 11:07] VITALS: BMI 40.3
[2019-07-01 14:58] LABS: ANION GAP 8.6 mmol/L (8-16); CALCIUM 8.9 mg/dL (8.5-10.1); CARBON DIOXIDE 35.6 mmol/L (21.0-32.0); CREATININE - SERUM 1.7 mg/dL (0.6-1.3); POTASSIUM - SERUM 3.2 mmol/L (3.5-5.1)
[2019-07-01 14:59] LABS: GENTAMICIN - TROUGH 3.1 ug/mL (0.5-2.0)
== END | disposition home or self-care (01) ==
LOC: D.LABREF 14:40
PROVIDERS: ATTEND Family Medicine
DX: R53.83 Other fatigue (principal); R41.0 Disorientation, unspecified

== ENCOUNTER → 2019-07-02 09:52 | Outpatient (CLI) | payer MEDICARE ==
[2018-09-25 11:07] VITALS: BMI 40.3
[2019-07-02 10:28] LABS: ANION GAP 10.1 mmol/L (8-16); CALCIUM 9.4 mg/dL (8.5-10.1); CREATININE - SERUM 1.4 mg/dL (0.6-1.3); GENTAMICIN - RANDOM 0.8 ug/mL (0.5-2.0); POTASSIUM - SERUM 3.1 mmol/L (3.5-5.1)
== END | disposition home or self-care (01) ==
LOC: D.LABREF 09:52
PROVIDERS: ATTEND Family Medicine
DX: T36.5X5A Adverse effect of aminoglycosides, initial encounter (principal)

== ENCOUNTER → 2019-11-17 06:00 | Outpatient (CLI) | payer MEDICARE ==
[2018-09-25 11:07] VITALS: BMI 40.3
== END | disposition home or self-care (01) ==
LOC: D.LABREF 06:00
PROVIDERS: ATTEND Family Medicine
DX: Z51.81 Encounter for therapeutic drug level monitoring (principal)

== ENCOUNTER → 2020-10-16 18:33 | Outpatient (CLI) | payer MEDICARE ==
[2018-09-25 11:07] VITALS: BMI 40.3
[2020-10-16 19:57] LABS: BILIRUBIN NEGATIVE (NEGATIVE); KETONE NEGATIVE (NEGATIVE); NITRITE POSITIVE (NEGATIVE); UROBILINOGEN NORMAL mg/dL (< 2)
[2020-10-16 19:58] LABS: BACTERIA MANY HPF (NONE SEEN)
== END | disposition home or self-care (01) ==
LOC: D.LABREF 18:33
PROVIDERS: ATTEND Family Medicine
DX: R53.82 Chronic fatigue, unspecified (principal)

== ENCOUNTER → 2020-10-31 21:51 | Outpatient (CLI) | payer MEDICARE ==
[2018-09-25 11:07] VITALS: BMI 40.3
[2020-10-31 22:35] LABS: ALBUMIN 2.9 g/dL (3.4-5.0); ANION GAP 10.7 mmol/L (8-16); BILIRUBIN - TOTAL 0.29 mg/dL (0.2-1.3); CALCIUM 9.2 mg/dL (8.5-10.1); CREATININE - SERUM 1.5 mg/dL (0.6-1.3); POTASSIUM - SERUM 3.7 mmol/L (3.5-5.1)
== END | disposition home or self-care (01) ==
LOC: D.LABREF 21:51
PROVIDERS: ATTEND Family Medicine
DX: R25.2 Cramp and spasm (principal)

== ENCOUNTER → 2020-11-09 17:29 | Outpatient (CLI) | payer MEDICARE ==
[2018-09-25 11:07] VITALS: BMI 40.3
[2020-11-09 19:19] LABS: BACTERIA MODERATE HPF (NONE SEEN); BILIRUBIN NEGATIVE (NEGATIVE); KETONE NEGATIVE (NEGATIVE); NITRITE POSITIVE (NEGATIVE); UROBILINOGEN NORMAL mg/dL (< 2)
== END | disposition home or self-care (01) ==
LOC: D.LABREF 17:29
PROVIDERS: ATTEND Family Medicine
DX: N32.89 Other specified disorders of bladder (principal)

== ENCOUNTER → 2020-11-13 18:15 | Outpatient (CLI) | payer MEDICARE ==
[2018-09-25 11:07] VITALS: BMI 40.3
[2020-11-13 19:04] LABS: BASOPHILS 0.4 % (0-2); EOSINOPHILS 7.5 % (0-7); HEMATOCRIT 40.8 % (42.0-54.0); HEMOGLOBIN 12.4 g/dL (13.5-17.5); IMMATURE GRANULOCYTES 0.6 % (0-5); LYMPHOCYTE ABS# 1.64 10x3/uL (1.32-3.57); LYMPHOCYTES 19.6 % (15-50); MCHC 30.4 g/dL (31.0-37.0); MCV 88.9 fL (80.0-100.0); MEAN PLATELET VOLUME 12.5 fL (7.4-10.4); MONOCYTES 11.9 % (2-11); NEUTROPHIL ABS# 5.01 10x3/uL (1.78-5.38); PLATELET COUNT 167 10x3/uL (130-400); RBC 4.59 10x6/uL (4.20-6.10); RDW 17.2 % (11.5-14.5); WBC 8.4 10x3/uL (4.8-10.8)
[2020-11-13 19:41] LABS: ANION GAP 13.7 mmol/L (8-16); BILIRUBIN - TOTAL 0.25 mg/dL (0.2-1.3); CHOL - HDL RATIO 3.7 ratio (2.3-4.9); CREATININE - SERUM 1.5 mg/dL (0.6-1.3); LDL-HDL RATIO 2.1 ratio (1.5-3.5); POTASSIUM - SERUM 4.7 mmol/L (3.5-5.1); PROTEIN - SERUM 7.3 g/dL (6.4-8.2); THYROID STIMULATING HORMONE 5.12 uIU/mL (0.36-3.74)
== END | disposition home or self-care (01) ==
LOC: D.LABREF 18:15
PROVIDERS: ATTEND Family Medicine
DX: I10 Essential (primary) hypertension (principal); E87.6 Hypokalemia; E03.9 Hypothyroidism, unspecified; E11.9 Type 2 diabetes mellitus without complications

== ENCOUNTER → 2020-11-16 16:50 | Outpatient (CLI) | payer MEDICARE ==
[2018-09-25 11:07] VITALS: BMI 40.3
== END | disposition home or self-care (01) ==
LOC: D.LABREF 16:50
PROVIDERS: ATTEND Family Medicine
DX: E03.9 Hypothyroidism, unspecified (principal)

== ENCOUNTER → 2020-11-23 11:21 | Outpatient (CLI) | payer MEDICARE ==
[2018-09-25 11:07] VITALS: BMI 40.3
[2020-11-23 13:55] LABS: BILIRUBIN NEGATIVE (NEGATIVE); KETONE NEGATIVE (NEGATIVE); NITRITE NEGATIVE (NEGATIVE); UROBILINOGEN NORMAL mg/dL (< 2)
[2020-11-23 13:56] LABS: BACTERIA MODERATE HPF (NONE SEEN)
== END | disposition home or self-care (01) ==
LOC: D.LABREF 11:21
PROVIDERS: ATTEND Family Medicine
DX: R41.82 Altered mental status, unspecified (principal)

== ENCOUNTER → 2020-11-27 17:15 | Outpatient (CLI) | payer MEDICARE ==
[2018-09-25 11:07] VITALS: BMI 40.3
[2020-11-27 17:37] LABS: BASOPHILS 0.9 % (0-2); HEMATOCRIT 47.3 % (42.0-54.0); HEMOGLOBIN 15.5 g/dL (13.5-17.5); LYMPHOCYTES 21.2 % (15-50); MCH 27.3 pg (26.0-34.0); MCHC 32.7 g/dL (31.0-37.0); MCV 83.4 fL (80.0-100.0); MEAN PLATELET VOLUME 10.4 fL (7.4-10.4); MONOCYTES 11.2 % (2-11); NEUTROPHILS 62.7 % (40-80); PLATELET COUNT 200 10x3/uL (130-400); RBC 5.67 10x6/uL (4.20-6.10); RDW 18.4 % (11.5-14.5); WBC 9.5 10x3/uL (4.8-10.8)
[2020-11-27 17:50] LABS: ALBUMIN 3.6 g/dL (3.4-5.0); ANION GAP 12.1 mmol/L (8-16); BILIRUBIN - TOTAL 0.37 mg/dL (0.2-1.3); CALCIUM 9.9 mg/dL (8.5-10.1); CARBON DIOXIDE 37.9 mmol/L (21.0-32.0); CREATININE - SERUM 2.6 mg/dL (0.6-1.3); PROTEIN - SERUM 8.6 g/dL (6.4-8.2)
== END | disposition home or self-care (01) ==
LOC: D.LABREF 17:15
PROVIDERS: ATTEND Family Medicine
DX: J44.1 Chronic obstructive pulmonary disease with (acute) exacerbation (principal); G93.41 Metabolic encephalopathy; N17.9 Acute kidney failure, unspecified; I10 Essential (primary) hypertension

== ENCOUNTER → 2020-12-06 16:56 | Outpatient (CLI) | payer MEDICARE ==
[2018-09-25 11:07] VITALS: BMI 40.3
[2020-12-06 19:01] LABS: ALBUMIN 2.9 g/dL (3.4-5.0); BILIRUBIN - TOTAL 0.34 mg/dL (0.2-1.3); CALCIUM 8.9 mg/dL (8.5-10.1); CARBON DIOXIDE 28.7 mmol/L (21.0-32.0); CREATININE - SERUM 1.4 mg/dL (0.6-1.3); POTASSIUM - SERUM 4.7 mmol/L (3.5-5.1); PROTEIN - SERUM 7.2 g/dL (6.4-8.2)
== END | disposition home or self-care (01) ==
LOC: D.LABREF 16:56
PROVIDERS: ATTEND Family Medicine
DX: N18.6 End stage renal disease (principal)

== ENCOUNTER → 2020-12-19 18:21 | Outpatient (CLI) | payer MEDICARE ==
[2018-09-25 11:07] VITALS: BMI 40.3
== END | disposition home or self-care (01) ==
LOC: D.LABREF 18:21
PROVIDERS: ATTEND Family Medicine
DX: Z13.29 Encounter for screening for other suspected endocrine disorder (principal)